=== PATIENT | female | born 2000 | race Caucasian/White ===

== ENCOUNTER 2023-04-29 08:00 | Outpatient (RCR) | payer OTHER, SELFPAY ==
--- NOTE | 2023-04-29 09:10 | BH.SGPN.GN ---
Behaviors/Verbalizations/Mental Status: [] Eye contact is good. Motor activity is appropriate. Appearance is casual. Speech is Appropriate. Mood is depressed. Affect is flat. Thoughts are linear and logical. No evidence of psychosis. Reviewed daily check in sheet and no reports of suicidal ideations or intent. Client Response/Progress/Benefit: [] Pt participated when prompted. Attentive. Daily symptom tracker notes 2/5 for depression and anxiety. Shared with the group that today is her first day in [facility]. Pt reports her goals for [facility] are to feel secure about myself. She did not elaborate on the events that lead to her hospitalization and placement in [facility]. Limited progress as this is her first day in [facility] level of care. Benefited from group support, encouragement, and feedback. Will continue in [facility] to maintain safety, prevent decompensation/re-admission, and to increase healthy coping. Narrative Note: []
--- NOTE | 2023-04-29 10:20 | BH.SGPN.GN ---
Behaviors/Verbalizations/Mental Status: []Pt alert and oriented, neatly dressed and groomed. Eye contact good. Motor activity appropriate. Speech within normal limits. Affect constricted, mood depressed. Thoughts linear, logical, no signs of hallucinations or delusions. Client Response/Progress/Benefit: []Pt participated in group discussions. Attentive during psychoeducation on stages of change. Participated during experiential activity. Interactive group discussion on why change is difficult in which group verbalized that change involves the unknown, is scary, leads to uncertainly, makes one feel vulnerable, leads to fear of failure, and triggers the pressure of success. Pt feels that change can be good and help others, but pt associates change with anger and frustration. Pt benefitted from increased awareness of stages of changes and how emotions impact change. Will continue PHP tx to prevent decompensation, improve daily functioning, and maintain safety. ? Narrative Note: []
--- NOTE | 2023-04-29 10:39 | BH.COMM ---
Communication Note Communication with Client Communication Note: Met with pt today to complete initial paperwork. No significant changes since pre-admission screening. Completed [place] [facility] Screening and risk assessment. Denies active SI since discharging from inpatient psych. Pt reports having some fleeting SI that pt describes as intrusive and I don't want to do anything. Pt does not have a hx of self-harm. Reports family is the major protective factor. Future oriented and willing to seek crisis services if feeling unable to maintain safety at any time. Consulted with Dr. Vera with plan to admit to IOP with dx of F33.2
--- NOTE | 2023-04-29 10:39 | BH.MTP ---
Master Treatment Plan Patient Information Program Physician:: Dr. Lisandra Bañuelos Primary Therapist:: Irma CASTREJON Psychiatric Diagnoses Psychiatric Diagnoses:: Major depressive disorder, recurrent, severe without psychosis F 33.2; Generalized anxiety disorder; Strong cluster B traits Diagnosis Code(s):: F 33.2 Estimated LOS Estimated LOS (in weeks):: 1 Problem/Goal #1 Problem/Goal #1 Stated Goal:: Stabilize the suicidal crisis AEB reduction of suicide domain on the DSM-5 outcome and self-report reduction in SI and increase in hope. Description of Barriers: Pt's work environment is a significant trigger for SI and depression. Pt has rigid thought patterns that reinforce depressive symptoms, fear of rejection, and self-criticism. Functional Impact: Pt is a 22-year-old non-binary person with a history of depression and anxiety. Pt referred to [facility] tx following an psychiatric admission to [facility] due to a suicide attempt that was interrupted by excessive alcohol use. Pt presents with a depressed mood, passive SI, crying spells, hopelessness, negative thinking patterns, and guilt. Pt's symptoms are impacting their social, occupational, and daily functioning. Goal Relevant Strengths/Supports: Pt is intelligent, has supportive family, and pt has multiple hobbies and interests. Objectives Objective #1: Stated Objective: will work with therapist to develop a ?crisis plan? which includes emergency telephone numbers, 3-4 coping strategies for SI/overwhelming emotions, lists of supports, warning signs, positive aspects of life, and motivations. Interventions: Therapist will provide patient with safety plan worksheet and work with pt. to develop individualized plan Discharge Criteria: Complete safety plan and begin to implement internal and external coping skills. Target Date: 05/06/23 Review Date: 05/06/23 Status: open Objective #2: Stated Objective: Pt will learn and utilize 2-3 healthy coping strategies to manage depressive symptoms. Interventions: Therapist will utilize CBT techniques to assist pt with understanding the connection between thoughts, feelings and behaviors. Education will be provided on behavioral activation. Therapist will assist pt in learning internal coping strategies to manage depressive symptoms, along with helping pt identify triggers. Discharge Criteria: Pt will have achieved this goal when can verbalize and has practiced at least 2 healthy coping strategies that successfully manage depressive symptoms. Target Date: 05/06/23 Review Date: 05/06/23 Status: open
--- NOTE | 2023-04-29 10:39 | BH.PSA ---
Source of Information Presenting Problems/Circumstances Problems, Referral Source, Mental Status, Client: Pt is a 22-year-old non-binary person with a history of depression and anxiety. Pt referred to [facility] tx following an psychiatric admission to [facility] due to a suicide attempt that was interrupted by excessive alcohol use. Pt presents with a depressed mood, passive SI, crying spells, hopelessness, negative thinking patterns, and guilt. Pt's symptoms are impacting their social, occupational, and daily functioning. Psychiatric Presentation Psych Issues & Need for Admission Psychiatric Issues:: Major depressive disorder, recurrent, severe without psychosis F 33.2; Generalized anxiety disorder Past Psychiatric History MH Treatment Hx Treatment History: Pt has history of one psych admit as noted above and one suicide attempt as noted above. Once in 2020 the patient had a plan of crashing her car but did not do this and instead went to work. No other self-harm. Past psych meds include Zoloft, Lexapro and BuSpar. Took Zoloft for 5 years. Cause some stomach issues. Tried Lexapro last summer but had stomach side effects. BuSpar made her dizzy. First depressed in high school but states has always had thoughts of not wanting to live. First hospitalization:: 2022 Most recent hospitalization:: 2022 Medication Trials:: Yes ECT Therapy:: No Age of first mental health symptoms: See tx history Describe (age, circumstance, etc) any past hospitalizations: see tx history Current providers for mental health treatment (counselor, psychiatrist, supervisor case loading, etc.): Pt has an outpatient psychiatrist and therapist. Pt will return to seeing their outpatient therapist once out of [facility] tx. Development & Family of Origin Childhood Significant Childhood Events: Pt was born and raised in [place] and describes her childhood as good. They currently live in [place] with their father and states mom lives close by. For primary support pt has father, mother, twin sister and few close friends. Family Who currently lives in your home?: Pt currently lives with their mother, but usually lives with their father. Pt is staying with mother due to pt's suicide attempt taking place at their father's house. Describe family composition:: Pt's parents are and pt feels they have a good co-parenting relationship. Pt is close with both parents, but lives with their father. Pt has a twin sister and they are close. Pt also has a younger brother, but they are not as close. Pt has no children and has never been . Pt is not currently in a romantic relationship. Family History Family Hx of Psychiatric or AOD Problems: Lots of depression and alcoholism on the father side. Twin sister has depression and younger brother may have depression. Paternal great grandfather by suicide. Ethnicity Culture Do you identify yourself with any particular cultural, ethnic background, or community?: No Sexuality Sexual Orientation: Bisexual (pt also identifies as non-binary, but pt's father does not know this.) Spirituality Restorationist Do you currently identify with any organized amish?: None Beliefs Is there a particular form of support from this community you can use for your recovery?: No Mental Status Memory Recent Memory: Good Remote Memory: Good Concentration Concentration: Good Eye Contact Eye Contact: Fair Speech Speech: Soft Thought Process Thought Process: Logical, Ruminations and [place] Insight: Fair Judgment: Good Behavior: Anxious (playing with a fidget) Orientation Orientation: Time, Person, Place and Situation Appearance Appearance: Neat/clean Mood Mood: Anxious and Depressed Affect Affect: Constricted Suicide Assessment Suicidal Ideation Have you ever felt like hurting yourself?: Yes Please explain:: Pt had a recent suicide attempt that resulted in hospitalization. Pt reports drinking heavily at the time to lower their inhibitions. Were you using ETOH/drugs at the time?: Yes Suicidal Intentional Rating Scale (SIRS): Current suicidal thoughts/No plan/Contracts for safety Physician Notification Violent Behavior/Abuse History Homicidal Ideation Do you have any homicidal thoughts? If so, explain:: No Abuse Have you ever been abused?: No Please explain:: Pt denies any abuse in childhood or as an adult. Life Events Are there any other significant life events?: Hardships (triggers at work which worsened pt's depression and led to suicide attempt.) Safety Do you ever feel threatened in your home? If yes, describe:: No Adult Social History Age 17 to Present Describe your current support system:: Pt is close with their father, twin, and mother. Pt has several close friends and pt has co-workers they get along with. Substance Use Substance Substance Use Type: Alcohol ( No smoking or vaping. No alcohol use since admission and patient says they would only have 2 drinks every few weeks prior to psych admission. Denies any other drugs or rehab.) and Caffeine (rare use as it increases anxiety.) Leisure/Social Activities Interests What do you enjoy or might be interested in learning about?: Pt is very passionate about insects, animals, and nature. Pt also enjoys ronan, hiking, and journaling. 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 Pt states that pt enjoys the job sometimes but hates certain aspects of it like euthanize animals. Pt hopes to go to graduate school, but has not been accepting and has applied and has had two formal interviews but was not excepted for either position and feels this rejection contributed to her worsening depression and anxiety. Service Service Have you ever been in the ?: No Legal History Records Have you had any past legal charges?: No Do you have any current legal charges?: No Have you ever been incarcerated? If yes, describe:: No Court Orders Have you had any past court orders for psychiatric treatment?: No Do you have a present court order for psychiatric treatment?: No Problem Checklist Current Problem Areas Problem List: Nutritional/Eating pattern changes, Depressed mood/sad, Anxiety, Inattention, Impulsivity, Sleep problems, Pertinent health issues (At 11 years old pt was admitted and had a colonoscopy and a GI work-up. They had irritable bowel and GERD diagnosed since then.) and Additional psychosocial stressors Diagnoses Diagnoses Diagnosis #1:: Major Depressive Disorder, recurrent, severe, without psychosis Diagnosis #2:: ROBIN Interpretive Summary Interpretive Summary Interpretive Summary: Pt is a 22-year-old nonbinary single (biological female) who was referred to the [facility] partial hospitalization program after an inpatient stay at [facility] from April 17 to April 21, 2023. Pt was admitted after a suicide attempt on April 15, 2023. Pt states that they had been depressed but for unknown reason that day while they were preparing bird food they decided to have alcoholic drink and keep drinking and then wrote instructions for someone to take care of their pets. Pt then took their pocket knife out and tested their skin to see if pt could cut their femoral artery as a means of completing suicide. Pt may have taken trazodone and does not remember what happened or if Pt blacked out but pt?s father came in and found pt and called the EMS. The Pt states that there was vomit on the floor according to their father and a bottle of trazodone near pt. The Pt was taken to the hospital and was in the ICU for 2 days for possible trazodone overdose and was intubated on the way to the hospital. Pt then was admitted for 4 days at the psychiatric unit and then referred to [facility]. For primary support Pt has her parents and a best friend. Pt denies any history of self-harm. Pt currently lives with their father and they get along well. Pt is staying at their mother?s house for awhile while working on their mental health since the attempt happened at father?s house. Pt has no romantic partner. 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 Pt states that Pt enjoys the job sometimes but hates certain aspects of it like euthanize animals. The Pt has had passive thoughts of since the end of high school and has been thinking about multiple ways to complete suicide in the past few months. Pt has thought about crashing their car since 2020 off-and-on. Describes their mood as depressed but it is a little better now than it was when Pt went in the hospital. Pt stated that prior to the suicide attempt they had even stopped walking the dog which made them realize that their mood was very down. Occasional hopelessness and anhedonia. Does enjoy crocheting and bird watching. Appetite decreased and sleep has required trazodone as the Pt wakes up and cannot get back to sleep. Energy level is low overall. Rare caffeine use. Concentration is decreased and the Pt admits to guilt. The Pt has occasional now passive thoughts of . The Pt states that since her psych admission Pt has thoughts of different ways I could have tried to kill myself but Pt states that Pt does not intend to kill her self but is just intellectually thinking of the way Pt could have tried to do it. Pt denies homicidal ideation, hallucinations or delusions. Pt is a worrier by nature. No history of eating disorder, OCD, trauma or PTSD. Strong family history of anxiety and depression. No report of abuse during childhood or as an adult. Treatment Plan Recommendations Recommendations Guidelines Recommendations:: Pt will start the PHP program at [facility] as the structure, support, education, and group therapy will hopefully prevent worsening of Pt's symptoms that might require rehospitalization. Pt felt safe during the interview and if it anytime they do not feel safe they will let us know or go to the emergency department. Pt agrees to abstain from all alcohol and any drug use. Pt has an outpatient psychiatrist and therapist that pt will continue to see after pt finishes PHP/IOP.
--- NOTE | 2023-04-29 11:20 | BH.SGPN.GN ---
Behaviors/Verbalizations/Mental Status: []Pt alert and oriented, casually dressed and groomed. Eye contact good. Motor activity appropriate. Speech within normal limits. Affect congruent, mood anxious and depressed. Thoughts linear, logical, no signs of hallucinations or delusions. Client Response/Progress/Benefit: []Pt responded well to session, attentive. Did well to process activity and work with group to relate the strategies used to overcome barriers in the activity to managing change in own life. Pt identified wanting to work on improving their ability to accept their mental health struggles and need for help with managing mental health sx. Shared struggling with self-doubt regarding their ability to successfully make this change. Shared following through with this change will improve their mood, self love, and personal relationships. Pt identified they can use positive self-talk, having an open mind, and supports to aid in managing this change. Pt will continue PHP tx to improve mood stability, promote communication with supports, maintain safety, and prevent decompensation. Narrative Note: []
--- NOTE | 2023-04-29 13:59 | BH.MDN_ITS ---
Multi-Disciplinary Note Note 60-min Individual: Time Started:: 12:15 Date: 04/29/23 Purpose of session/treatment goals addressed:: To gather information on pt's current stressors, symptoms, triggers, and tx goals. Another goal was to build rapport and provide emotional support. Eye Contact:: Fair Motor Activity:: Appropriate Appearance:: Casual Speech:: Soft Mood:: Depressed Affect:: Congruent (tearful) Thoughts:: Linear, Logical and No evidence of hallucinations/delusions noted Staff Interventions:: thought challenging, CBT techniques, rapport building, strengths perspective, completed risk assessment / safety planning and goal setting Client Response:: Pt responded well to session, open to meeting with therapist. Pt reports their first day went well and it went by fast. Pt shared about some of their interests, supports, and previous mental health treatment. Pt is an animal lover and enjoys nature. Their biggest stressors right now, which led to recent suicide attempt, was the stress of work and not getting into graduate school for wildlife conservation. Pt currently works at [employer] and there pt witnesses euthanasian of animals and knows about different tests they do on animals which is disturbing to pt. Pt is off work right now and feels like if they go back they will need a different role. Pt responded well to emotional support from therapist. Pt receptive to working on goal setting for PHP and completing a safety plan. Pt shared their biggest goal is to address their emotions. Pt completed safety plan which included warning signs of: excessive isolation, not walking their dog, and listening to a lot of sad music. Pt's coping skills and supports which included: their parents, friend, drawing, crocheting, and going outside. Also identified ways pt's parents can help pt and what makes things worse. Risks/Concerns:: Pt reports having suicidal ideations with plans to cut self and pt was recently admitted to [facility] in [place]. No active SI since discharge and pt reports they had a good weekend, so no suicidal ideations for the past few days. Future oriented. No access to weapons or stockpiles of medications. Progress Toward Goals/Plan:: First day of PHP tx. Pt reported it went faster than I thought it would. Pt has been in individual counseling before, but no previous IOP tx. Pt currently endorses a depressed mood, crying spells, isolation, negative thoughts of self, lack of motivation, anhedonia, and fleeting, passive SI. Pt will continue PHP tx to prevent rehospitalization and gain healthy coping skills. Time Stopped:: 13:15
--- NOTE | 2023-04-30 09:01 | BH.SGPN.GN ---
Behaviors/Verbalizations/Mental Status: []Pt alert and oriented, casually dressed and groomed. Eye contact good. Motor activity appropriate. Speech within normal limits. Affect congruent and bright, mood euthymic. Thoughts linear, logical, no signs of hallucinations or delusions. Reviewed pt?s symptom tracker, suicidal ideation reported as a 1/5 which is within pt baseline, denies plan, or active intent as of 04/30/23. Client Response/Progress/Benefit: []Pt responded well to session, open to processing with group and engaged. Pt reports feeling wired this morning. Explained this is related to continuing to adjust to tx environment. Did well to identify current mental health wins as spending time with their sister and mother rather than isolating. Another win noted as making progress on the blanket pt is crocheting. Shared feeling proud of this accomplishment and glad they are getting back into activities they enjoy. Stressor identified as ongoing issues with sleep. Pt appeared to benefit from supportive feedback of the group, as well as reflecting on mental health wins. Pt will continue PHP tx to promote mood stability, improve self-compassion, and continue to prevent decompensation. Narrative Note: []
--- NOTE | 2023-04-30 10:10 | BH.SGPN.GN ---
Behaviors/Verbalizations/Mental Status: []Pt alert and oriented, casually dressed and groomed. Eye contact fair. Motor activity appropriate. Speech within normal limits. Affect constricted, mood dysthymic. Thoughts linear, logical, no signs of hallucinations or delusions. Client Response/Progress/Benefit: []Pt receptive of session, engaged throughout AEB taking notes and listening to discussion. Appeared to connect with group topic of cognitive distortions and the impact of thought patterns on mental health, coping behaviors, and relationships. Pt reports connecting with distortions of all or nothing thinking, mental filtering, and emotional reasoning. Pt appeared to benefit from gaining insight on distorted thinking patterns and how this impacts overall mental health. Will continue PHP tx to prevent decompensation, improve daily functioning, and increase use of healthy coping skills. Narrative Note: []
--- NOTE | 2023-04-30 14:35 | BH.MDN ---
Multi-Disciplinary Note Note 45-min Individual: Time Started:: 12:30 Date: 04/30/23 Purpose of session/treatment goals addressed:: To address current symptoms, begin working on intrusive thoughts, and provide emotional support. Eye Contact:: Good Motor Activity:: Appropriate Appearance:: Neat Speech:: Soft Mood:: Anxious, Irritable and Depressed Affect:: Constricted (and tearful) Thoughts:: Racing and No evidence of hallucinations/delusions noted Staff Interventions:: psychoeducation on: (intrusive thoughts ), CBT techniques, mindfulness skills, strengths perspective and other (read over types of intrusive thoughts) Client Response:: Pt responded well to session, open to meeting with therapist. Pt shared group is going okay so far and pt feels like there is some benefit. Pt stated they met with the PA student today and they were able to talk about their hospitalization without becoming tearful, but pt became tearful during session. Pt feels that their thoughts of suicide are more intrusive, but pt shared there are times when the SI is because pt is depressed. Pt is not actively suicidal today and they have been keeping themselves busy. Group today was on cognitive distortions and pt shared I think I know more about cognitive dissonance than distortions. Pt feels they have cognitive dissonance with their current job. This job has been a major trigger for depression, SI, and intrusive thinking. Pt shared they want to discuss intrusive thoughts today and was receptive to learning about the different types of intrusive thoughts. Pt reports belief they have self-harming, doubts about relationships, traumatic memories, and questioning reality types of intrusive thoughts. Pt tearful while talking about how to overcome these thoughts, knowing that it will be frustrating and difficult. Pt receptive to emotional support and gentle thought challenging by therapist. Pt asked to practice a grounding skills, but pt declined. Pt reports plans to go for a walk today to ease some of their frustration and tension. Risks/Concerns:: pt reports 1/5 for thoughts of suicide today and 0/5 for intent. Pt reports no active SI, plan, or intent as of 04/30/23. Pt is tearful while talking about suicide and recent hospitalization. Future oriented. Progress Toward Goals/Plan:: Second day of PHP tx and pt reports it is going okay so far. Pt is engaged in groups by taking notes and interacting with peers. Pt's symptoms are ongoing, no changes since admission. Pt currently endorsing crying spells, negative thinking patterns, intrusive self-harming thoughts, poor sleep, and a depressed mood with anhedonia. pt mentioned concerns about Trazodone, and was encouraged to bring this up with Dr. Bañuelos tomorrow. Pt will continue PHP tx to prevent rehospitalization, gain social support and healthy coping skills, and improve daily functioning.
--- NOTE | 2023-05-01 09:15 | BH.NA ---
Physical Data Vital Signs Pulse Rate: 90 Blood Pressure: 107/63 Height/Weight Height: 1.6 m Weight:: 55.792 kg Weight in Pounds: 123.0 lbs Current Medication Compliance Medication Compliance Do you take your medication as prescribed?: Yes Nutritional History Appetite Nutritional Instructions: Describe your appetite:: Fair Additional nutritional information:: Client states they have probably lost a couple of pounds recently unintentionally due to a decreased appetite. Functional Assessment Sleep Pattern Describe any problems with sleeping: Client states they do usually get a full nights sleep if they take Trazodone, but usually only 3-4 hours if they don't take Trazodone. Sensory/Communication Assess Vision Problems Do you have any vision problems?: Glasses Communication Problems Do you have difficulty understanding what people are saying?: No Learning Assessment Education What is your level of education?: Bachelor Degree Medical Problems/History Gastrointestinal Conditions Gastrointestinal: Constipation and Other (See comments) (IBS, GERD) Pain Assessment Do you have acute or chronic pain?: No Surgical History Surgical History Have you had any surgeries? If so, list type and date:: No Substance Abuse Substance Abuse Please describe substance abuse in the last 30 days:: Client states they usually only drinks alcohol socially, but states prior to their suicide attempt on 04/15/23, they had a lot of alcohol to drink. Client denies tobacco or substance use. Client reports occasional caffeine use. Mental Status Summary Mental Status Significant Findings/Observations on Appearance and Mood:: Client is alert and oriented x 4. Client is casually groomed with good hygiene. Client is cooperative with assessment. Client makes good eye contact. Client's voice has normal rate and volume. Client has appropriate affect. Client makes logical associations. Client has normal processing. Client denies delusions/hallucinations. Client states they do have some intrusive thoughts about suicide, but denies intent and states their family is their protective factor. Suicide Assessment Suicidal Ideation Are you currently or have you been suicidal in the past?: Yes Suicidal Intentional Rating Scale (SIRS): Current suicidal thoughts/No plan/Contracts for safety Physician Notification Past Psychiatric History MH Treatment Hx Past Psychiatric Medications:: Zoloft (at age 17), Lexapro (a short time, stopped due to stomach issues), Buspar (only a few days, caused dizziness) Age of first mental health symptoms: Client states she has had depression symptoms since middle school, and states she first started medication for mental health at age 17. Describe (age, circumstance, etc) any past hospitalizations: [facility] 04/17-04/21/23 after a medical hospitalization for a suicide attempt Current providers for mental health treatment (counselor, psychiatrist, mattress spring encaser, etc.): [facility] Fall Risk Assessment Age Age: Less than 60 Mental Status Mental Status: Willing & able to ask for assistance when needed Physical Status Physical Status: No problems Impairments Impairments: None Elimination Elimination: Continent AND independent Gait or Balance Gait or Balance: Walks independently Hx of Falls History of falls in the past 6 months: No known history Medications/Substances Psychotropics:: Antidepressants Medications/substances used within the past 24 hours or ordered to administer: 1-2 of the medications/substances listed above Total Score Total Points:: 1 RN Summary of Impressions Impressions Recommendations Impressions: Psychiatric Issues: 1. Major depressive disorder, recurrent, severe without psychosis 2. Generalized anxiety disorder 3. Strong cluster B traits Level of Care How do the client's current symptoms and functional deficits support need for this level of care?: Client was referred to IOP/PHP after a recent hospitalization at [facility] after suicidal ideations and a suicide attempt. 04/15/23 client states they had been drinking alcohol and started writing down their passwords for things and how to care for their animals as they got more suicidal ideas. Client started writing a suicide note. Client began to cut their leg to see how much alcohol they would need to drink to not feel pain so they could cut their femoral artery as a suicide attempt. Client states they passed out and their dad found them and called 911 and they have no memory of being in the ER until they woke up in the ICU. Client states for months they had been thinking about what supplies they could take from work to help them with a suicide attempt. Client states now they still have intrusive thoughts about suicide, but states their family is a strong protective factor. PHP/IOP will promote gains and prevent further decompensation while providing social support and skills training.
[2023-05-01 09:41] VITALS: BP 107/63; PULSE 90
--- NOTE | 2023-05-01 10:10 | BH.SGPN.GN ---
Behaviors/Verbalizations/Mental Status: [] Client alert and oriented, casually dressed and groomed. Eye contact fair. Motor activity appropriate. Speech within normal limits. Affect congruent, mood anxious. Thoughts linear, logical, no signs of hallucinations or delusions. Client Response/Progress/Benefit: []Client was an active participant in activity and taking notes during group discussion. Attentive during psychoeducation on coping skills, why people use unhealthy coping skills, and how to replace unhealthy coping skills. Group came up with list of negative coping skills that included substance use, avoidance, lashing out, and escaping from reality. Group discussed the effects of how negative coping skills can impact mental health in a negative way. Benefited from increased understanding of unhealthy coping skills and the need for developing healthy interna and external coping skills. client will continue PHP tx to improve mood stability, decrease anxiety, and improve daily functioning.
--- NOTE | 2023-05-01 13:16 | BH.PSY.EVA_ITS ---
Psychiatric Evaluation Initial Evaluation Initial Evaluation: History of Present Illness: [] The patient is a 22-year-old nonbinary single (biological female) who was referred to the [facility] partial hospitalization program after an inpatient stay at [facility] in [place] from April 17 to April 21, 2023. The patient was admitted after a suicide attempt on April 15, 2023. The patient states that they had been depressed but for unknown reason that day while they were preparing bird food they decided to have alcoholic drink and keep drinking and then wrote instructions for someone to take care of her pets. The patient then took her pocket knife out and tested her skin to see if she could cut her femoral artery as a means of completing suicide. Patient may have taken trazodone and does not remember what happened or if she blacked out but her father came in and found her and called the EMS. The patient states that there was vomit on the floor according to her father and a bottle of trazodone near her. The patient was taken to the hospital and was in the ICU for 2 days for possible trazodone overdose and was intubated on the way to the hospital. She then was admitted for 4 days at the psychiatric unit and then referred here. For primary support she has her parents and 1 friend. She denies any history of self-harm. She currently lives with her father and they get along well. She has no romantic partner. 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 She states that she enjoys the job sometimes but hates certain aspects of it like euthanize animals. The patient has had passive thoughts of since the end of high school and has been thinking about multiple ways to complete suicide in the past few months. She has thought about crashing her car since 2020 off-and-on. Describes her mood is depressed but it is a little better now than it was when she went in the hospital. The patient stated that prior to the suicide attempt they had even stopped walking the dog which made them realize that their mood was very down. Occasional hopelessness and anhedonia. Does enjoy crocheting and bird watching. Appetite decreased and sleep has required trazodone as the patient wakes up an d cannot get back to sleep. Energy level is low overall. Rare caffeine use. Concentration is decreased and the patient admits to guilt. The patient has occasional now passive thoughts of . The patient states that since her psych admission she has thoughts of different ways I could have tried to kill myself but she states that she does not intend to kill her self but is just intellectually thinking of the way she could have tried to do it. Patient denies homicidal ideation, hallucinations or delusions. She is a worrier by nature. No history of eating disorder, OCD, trauma or PTSD. Current Psychiatric Medications: [] Wellbutrin XL 300 mg p.o. every morning (4 months at this dose and on it for 1 year); Cymbalta 90 mg p.o. daily (on it for 3 years, dose increased from 60-91 admitted in April 2023. Past Psychiatric History: [] 1 psych admit as noted above. 1 suicide attempt as noted above. Once in 2020 the patient had a plan of crashing her car but did not do this and instead went to work. No other self-harm. Past psych meds include Zoloft, Lexapro and BuSpar. Took Zoloft for 5 years. Cause some stomach issues. Tried Lexapro last summer but had stomach side effects. BuSpar made her dizzy. First depressed in high school but states has always had thoughts of not wanting to live. Substance Use History: [] No smoking or vaping. No alcohol use since admission and patient says she would only have 2 drinks every few weeks prior to her admission. Denies any other drugs or rehab. Allergies: [] Cats, grasses and other but no medication allergies known. Maalox, milk of magnesia, Zyrtec as needed. Psych meds as dictated above Medications: [] See above Past Medical History: [] At 11 years old the patient was admitted and had a colonoscopy and a GI work-up. They had irritable bowel and GERD diagnosed since then. [place] teeth but no other surgeries. Regular menstrual periods and has a vaginal ring for control. 0 para 0 and sexually active. Family Psychiatric History: [] Lots of depression and alcoholism on the father side. Twin sister has depression and younger brother may have depression. Paternal great grandfather committed suicide. Personal/Social History: [] The patient was born and raised in [place] [facility] and describes her childhood as good. They currently live in [place] with her father and states mom lives close by. For primary support the patient has father, mother, twin sister and a friend. Patient is single and has no children and identifies as bisexual. Patient has not discussed the fact that she is nonbinary with her father. The patient and has pet birds a gecko and a dog. 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 She is been there for 8 months and likes part of the job but does not like the necropsy's and finds it emotionally taxing. She is currently on leave from work and plans to return to the job but not be in the lab. She she has a high school diploma and a bachelor's degree in animal science from the [employer]. Patient wants to go to graduate school for conservation science. The patient has tried to get another graduate position and has applied and has had 2 formal interviews but was not excepted for either position and feels this rejection contributed to her worsening depression and anxiety. Legal History: [] Has light truck driver's license. No arrests. No DUIs. Review of Systems: [] Review of systems includes headaches, GI side effects, joint pain, muscle stiffness on occasion. Otherwise negative except as noted in present illness otherwise. Vital Signs: [] Vital signs and exam reviewed in records and in nurses notes and updated and the patient is deemed medically able to participate in the IOP program. Mental Status Examination: [] Patient is a 22-year-old biological female who appears female and appears normal for stated age. She wears glasses and has short dark hair and is casually dressed and groomed with good hygiene. She is ambulatory with a normal gait. She is cooperative during the interview and eye contact is good. She has no psychomotor agitation or retardation. Speech is normal rate and rhythm and fluent with no pressure. Mood is depressed. Affect is full and normal. Thought process: Goal-directed and organized. Thought content: There is evidence of passive thoughts of and suicidal ideation. There is no evidence of active suicidal ideation, homicidal ideation, hallucinations or delusions. Reality testing is intact. Intelligence is above average. Judgment is intact. Impulsivity is high. Insight is limited. Diagnoses: [] 1. Major depressive disorder, recurrent, severe without psychosis 2. Generalized anxiety disorder 3. Strong cluster B traits 4. School, work and primary support issues Plan: [] The patient will start the PHP program at [facility] as the structure, support, education, and group therapy will hopefully prevent worsening of the patient's symptoms that might require rehospitalization. The patient felt safe during the interview and if it anytime they do not feel safe they will let us know or go to the emergency department. No medication changes were made today as the medications were changed recently when she was in the hospital. The patient will continue to follow-up with her outpatient provider and I will see the patient in follow-up in 1 week. The patient agrees to abstain from all alcohol and any drug use.
--- NOTE | 2023-05-01 13:30 | BH.DR.ITP ---
Initial Treatment Plan Patient Information Visit Information: ADMISSION DATE: EXPECTED LOS: 4-6 weeks Problems/Symptoms Problem #1:: Depression Symptom:: Sadness, anhedonia, biological disruption of appetite, biological disruption of sleep, decreased concentration, guilt, passive thoughts of , suicidal ideation Problem #2:: Anxiety Symptom:: Worry, rumination
--- NOTE | 2023-05-01 15:59 | BH.MDN ---
Multi-Disciplinary Note Note 45-min Individual: Time Started:: 11:15 Date: 05/01/23 Purpose of session/treatment goals addressed:: Used the session to review current symptoms and progress in [facility]. Provided psychoeducation on the Myths and Facts of Thoughts Eye Contact:: Good Motor Activity:: Appropriate Appearance:: Casual Speech:: Appropriate Mood:: Anxious Affect:: Congruent (smiles for most of the session. ) Thoughts:: Linear, Logical and No evidence of hallucinations/delusions noted Staff Interventions:: psychoeducation on: (intrusive thoughts) and rapport building Client Response:: Pt states that today is going pretty good. Met with program psychiatrist and no medication changes were made. She reviewed what she has been working on with program therapist (primary therapist was unable to meet with patient due to clinical issues with another client). Pt in the early stages of learning about intrusive thoughts, worried voice, false comfort, and montes mind. Used this session to introduce and discuss myths about thoughts such as 'out thoughts are under our control, our thoughts indicate our character thinking something makes it likely to happen, etc. Pt did well identifying why these are myths and not facts. Risks/Concerns:: pt reports 1/5 for thoughts of suicide today and 0/5 for intent. Pt reports no active SI, plan, or intent as of 05/01/23. This has been baseline since entering [facility]. Denies any significant stressors or acute changes since yesterday. Future-oriented. Protective factors are her family and pets I'm doing this for them more than myself. Does not present as imminent danger to herself. Progress Toward Goals/Plan:: Third day of [facility]. Pt is engaged in groups by taking notes and interacting with peers. Pt's symptoms are ongoing, no changes since admission. Pt currently endorsing crying spells, negative thinking patterns, intrusive self-harming thoughts, poor sleep, and a depressed mood with anhedonia. Great deal of her self-worth is based on achievements, school, and career. Due to the fact that he currently does not like her job and has not yet been accepted to a graduate school she is struggling with uncertainty and lack of purpose leading to depression/negative thoughts, passive thoughts of , and feelings of hopelessness. Time Stopped:: 12:00
--- NOTE | 2023-05-02 09:05 | BH.SGPN.GN ---
Behaviors/Verbalizations/Mental Status: []Pt alert and oriented, casually dressed and groomed. Eye contact good. Motor activity appropriate. Speech within normal limits. Affect congruent, mood anxious and content. Thoughts linear, logical, no signs of hallucinations or delusions. Reviewed pt?s symptom tracker, suicidal ideation reported as 1.5/5 which is within pt baseline, denies plan, or active intent as of 05/02/23. Client Response/Progress/Benefit: []Pt responded well to session, open to processing with group and engaged. Pt reports feeling wired this morning. Shared this is related to the nervous excitement they feel about being in the group setting. Did well to identify current wins which included going furniture shopping with her father as well as using several of the coping skills reviewed in coping skills group the previous date. Described reaching out to a support to help boost pt's mood when feeling more down the previous day. Current stressor noted as ongoing difficulties with experiencing nightmares. Receptive of group supportive feedback on calming skills to better manage the emotional distress nightmares can bring. Pt appeared to benefit from supportive feedback of the group, as well as reflecting on mental health wins. Pt will continue PHP tx to promote mood stability, improve self-compassion, and continue to prevent decompensation. Narrative Note: []
--- NOTE | 2023-05-02 10:10 | BH.SGPN.GN ---
Behaviors/Verbalizations/Mental Status: []Eye contact is good. Motor activity is appropriate. Appearance is casual. Speech is Appropriate. Mood is depressed. Affect is congruent. Thoughts are linear and logical. No evidence of psychosis. Client Response/Progress/Benefit: []Pt was an active participant in group discussion. Attentive during psychoeducation on SMART goals. Participated in experiential activity. Engaged during interactive discussion on the benefits of setting goals which group identified as; increase self-worth, increase confidence, can motivate us, can lead to personal growth, and can give one a sense of purpose. Participated during interactive discussion on possible obstacles to obtaining goals and pt self-identified barriers as wanting to avoid potential disappointment and stress pressure. Benefited from increased understanding of benefits of goals, obstacles to obtaining goals, and methods for setting appropriate goals (SMART goals). Will continue in PHP tx to reduce SI, improve daily functioning, and increase healthy coping skills. Narrative Note: []
--- NOTE | 2023-05-02 11:10 | BH.SGPN.GN ---
Behaviors/Verbalizations/Mental Status: []Pt alert and oriented, casually dressed, appropriately groomed. Eye contact good. Motor activity appropriate. Speech within normal limits. Affect congruent, mood euthymic. Thoughts linear, logical, no signs of hallucinations or delusions. Client Response/Progress/Benefit: []Pt was engaged during discussion and willing to complete the worksheet challenging them to develop a personal SMART goal. Pt chose the goal of reading 10 pages of novel with minimal distractions. Pt stated this will benefit them by working toward mindfulness and slow/calm thinking to decrease anxiety. Pt identified barriers which included noise, uncomfortable, tired, and bored. Identified for noise they can wear headphones or go outside. Pt receptive to identifying solutions for these barriers and willing to begin working on this goal. Benefited from this group by developing a short-term SMART goal related to mental health. Will continue PHP to improve daily functioning, increase consistent use of skills, and prevent decompensation.
--- NOTE | 2023-05-02 11:15 | BH.SGPN.GN ---
Behaviors/Verbalizations/Mental Status: [] Client alert and oriented, neatly dressed and groomed. Eye contact good. Motor activity appropriate. Speech within normal limits. Affect congruent, mood anxious and euthymic. Thoughts linear, logical, no signs of hallucinations or delusions. Client Response/Progress/Benefit: [] Client responded well to session AEB taking notes and providing input and examples throughout. Group discussed the different categories of coping skills which included distraction, emotional release, grounding, self-love, and thought challenging. Client created a coping skill menu identifying various skills to try in each category. Client?s coping skill menu included: reaching out to a support, exercise/walking, paced breathing, positive self-talk, and montes mind. Appeared to benefit from increasing repertoire of healthy coping skills. Client will continue PHP tx to continue to improve daily functioning, reduce thought patterns that lead to anxiety and depression, as well as prevent decompensation. Narrative Note: []
--- NOTE | 2023-05-02 14:56 | BH.MDN ---
Multi-Disciplinary Note Note 60-min Individual: Time Started:: 12:05 Date: 05/02/23 Purpose of session/treatment goals addressed:: To work on goal #1 objective #2 of pt's treatment plan. Eye Contact:: Good Motor Activity:: Appropriate Appearance:: Casual Speech:: Appropriate Mood:: Depressed Affect:: Congruent Thoughts:: Linear, Logical and No evidence of hallucinations/delusions noted Staff Interventions:: thought challenging, CBT techniques, strengths perspective, goal setting and other (completed the mistaken belief questionnaire.) Client Response:: Pt responded well to session, open to meeting with therapist. Pt shared they are hoping to get their journal back from the police this week. Pt's journal has the suicide note pt wrote in it and pt feels like it is important for pt to read this again. Pt shared when they get it back they will make sure to talk with support after. Pt is consistent with journaling, so pt is also looking forward to being able to write in it again. Discussed maybe creating a collage in their journal to separate where pt was and where pt wants to be. Pt receptive to learning about mistaken beliefs and completed the mistaken beliefs questionnaire. Pt shared they were not shocked to find out that their worth is heavily tied to how perfect they are and their accomplishments. Pt connected this to why not getting into the grad school they wanted was such a significant trigger. Pt shared they are very hard on themselves which makes it challenging to give themselves credit. Pt receptive to working on some self-reflection questions for homework. Pt will also continue to work on opposite action and talking with family. Risks/Concerns:: Pt reports ongoing thoughts and passive SI, but pt denies any active SI, plan, or intent. Future oriented and monitored frequently by parents. Progress Toward Goals/Plan:: Pt progress is mild, but pt continues to attend [facility] tx consistently. Pt reports they are forming connections with some people at [facility] and they are seeing some benefits from group. Pt's symptoms are ongoing and pt continues to report a depressed mood, crying spells, rumination, thoughts of and passive SI, and negative thoughts of self. Pt is trying to use healthy coping skills outside of IOP tx. Pt will continue [facility] level of care to prevent decompensation, increase use of healthy coping skills, and maintain safety. Time Stopped:: 12:58
--- NOTE | 2023-05-03 09:00 | BH.SGPN.GN ---
Behaviors/Verbalizations/Mental Status: [] Eye contact is good. Motor activity is appropriate. Appearance is casual. Speech is Appropriate. Mood is depressed. Affect is congruent. Thoughts are linear and logical. No evidence of psychosis. Reviewed daily check in sheet and no reports of suicidal ideations or intent. Client Response/Progress/Benefit: [] Pt was an active participant in group discussion. Attentive. Daily symptom tracker notes 2/5 for depression and /5 for anxiety. Overall reports mood as being better than yesterday. Shared that a nightmare yesterday increased her depressive symptoms however things ended well. Shared that after group she completed self-care, distraction, completed tasks, and completed goals. With the help of the group had insight that she utiized skills to regulate her mood and thoughts. Progress noted per pt report; able to utilize skills to decrease intensity of emotions and thoughts. Benefited from group support, encouragement, and feedabck. Will continue in [facility] to maintain safety, prevent decompensatin/re-admission to psych, and to increase overall functioning. Narrative Note: []
--- NOTE | 2023-05-03 10:10 | BH.SGPN.GN ---
Behaviors/Verbalizations/Mental Status: [] Eye contact is good. Motor activity is appropriate. Appearance is casual. Speech is Appropriate. Mood is euthymic. Affect is congruent. Thoughts are linear and logical. No evidence of psychosis. Client Response/Progress/Benefit: []Pt engaged participant AEB listening to others, engaging in activity, and providing feedback at times. Attentive during psychoeducation and provided insight into obstacles in the way of mental wellness. Pt shared with group current mental health reality and desired mental health reality. Stated trying to get back to hobbies as one step they currently making to get closer to desired reality. Identified barriers to desired reality include: bring work home, guilt/grief, unable to accept failure, stressing about invisible deadlines, and constant doubt. Benefited from taking look at current mental health state and obstacles for progress. Pt will continue PHP level of care to improve daily functioning, increase healthy coping, and prevent decompensation.
--- NOTE | 2023-05-03 11:10 | BH.SGPN.GN ---
Behaviors/Verbalizations/Mental Status: []Eye contact is good. Motor activity is appropriate. Appearance is casual. Speech is Appropriate. Mood is euthymic. Affect is congruent. Thoughts are linear and logical. No evidence of psychosis. Client Response/Progress/Benefit: []Pt was an active participant in group discussions and experiential activity. Attentive during psychoeducation. Pt participated during interactive discussion on strategies to overcome several obstacles to mental wellness including taking work home, guilt/grief, unable to accept failure, stress about invisible deadlines, and constant doubts. Pt choose the barrier of stress from invisible deadlines to work on this week and identified strategies to incorporate including challenging perspective on what is realistic. Benefited from increased awareness of obstacles to mental wellness and strategies to help overcome those obstacles. Will continue in [facility] tx to promote gains, further decrease depressive symptoms, and improve daily functioning. Narrative Note: []
--- NOTE | 2023-05-03 13:38 | BH.MDN ---
Multi-Disciplinary Note Note 60-min Individual: Time Started:: 12:10 Date: 05/03/23 Purpose of session/treatment goals addressed:: To work on pt's anxious thought patterns and perfectionistic expectations for self. Eye Contact:: Good Motor Activity:: Appropriate Appearance:: Neat Speech:: Appropriate Mood:: Anxious and Depressed Affect:: Congruent Thoughts:: Linear, Logical and No evidence of hallucinations/delusions noted Staff Interventions:: thought challenging, psychoeducation on: (exposure therapy), CBT techniques, mindfulness skills, strengths perspective and goal setting Client Response:: Pt responded well to session, open to meeting with therapist. Pt stated they thought about the mistaken belief questionnaire and pt realizes that they have a lot of unrealistic expectations for themselves. Pt shared this leads to pt being all or nothing and ultimately avoiding things. Pt shared right now they will not journal because pt does not have their journal. Pt also is avoiding looking for a different job and applying for schools. Pt stated avoidance in the short-term protects pt from feeling disappointment which pt is terrified to feel. Pt struggles with allowing themselves to feel their feelings without judgement. Pt gets anxious when they get sad because they have associated sadness with suicide. Pt also gets frustrated with themselves when they are sad because it feels like I don't have time for that. Discussed acceptance skills and how to work on overcoming mistaken beliefs by changing behaviors. Pt receptive to the idea of working exposure goals that focus on no being perfect. Pt also willing to learn more about emotions and how to become less judgmental of their emotions. Pt agreeable to plan for next week to do three more PHP days and then transition to IOP. Risks/Concerns:: Pt denies any active SI, plan, or intent as of 05/03/23. Pt continues to have thoughts of , but denies any thoughts of killing self. Future oriented and motivated. Progress Toward Goals/Plan:: Pt is making progress towards their tx goals AEB pt's consistent attendance and follow through with homework. Pt continues to endorse a depressed mood, daily thoughts of , negative thoughts of self, anxiety, and fear of their feelings. Pt is learning skills in group and individual sessions and pt is receptive to working on thought challenging and sitting with the uncomfortable. Pt will continue PHP for three more days next week and then transition to IOP level of care. Pt can benefit from PHP to prevent decompensation, further reduce SI, and improve daily functioning. Time Stopped:: 13:03
--- NOTE | 2023-05-06 09:05 | BH.SGPN.GN ---
Behaviors/Verbalizations/Mental Status: [] Eye contact is good. Motor activity is appropriate. Appearance is casual. Speech is Appropriate. Mood is depressed. Affect is congruent. Thoughts are linear and logical. No evidence of psychosis. Reviewed daily check in sheet and pt reports 2/5 for suicidal thoughts and 0/5 for intent. Scheduled to meet with individual therapist today. Client Response/Progress/Benefit: [] Pt participated at times during the group discussions. Attentive. Daily symptom tracker notes 3/5 for depression and 2/5 for anxiety.Very brief and superficial check-in with little elaboration. Reported a couple mental health wins over the weekend. Discussed that the picked up her journal from the police department over the weekend. She was very anxious about picking up this journal stating it had very important stuff inside. After picking up the journal she began to cry as she was reading it. (did not elaborate in group, however later learned that this was the journal she wrote her suicide note). Emotion for today is indifferent. Limited progress noted due to brevity of check-in. Benefited from group support, encouragement, and feedback. Will continue in IOP to maintain safety, stabilize mood, and prevent decompensation/re-amdission. Narrative Note: []
--- NOTE | 2023-05-06 10:10 | BH.SGPN.GN ---
Behaviors/Verbalizations/Mental Status: []Client alert and oriented, casually dressed and groomed. Eye contact fair. Motor activity appropriate. Speech within normal limits. Affect constricted, mood euthymic. Thoughts linear, logical, no signs of hallucinations or delusions. Client Response/Progress/Benefit: []Client was an semi-engaged participant in group discussions and activity. Attentive during psychoeducation. Client engaged in activity in which group was able to make connections about how can be easier to find positives in others compared to self. Engaged in interactive discussion on the definition of perspective, how perspective is formed, and why perspective is important in treatment. Client shared their perspective towards treatment today is neutral which they noted has been wavering. Stated stressors and work are contributing to neutral perspective. Will continue in PHP to increase consistent use of healthy coping, challenge distortions, and prevent decompensation.
--- NOTE | 2023-05-06 11:15 | BH.SGPN.GN ---
Behaviors/Verbalizations/Mental Status: []Pt alert and oriented, neatly dressed and groomed. Eye contact good. Motor activity appropriate. Speech within normal limits. Affect constricted, mood depressed. Thoughts linear, logical, no signs of hallucinations or delusions. Client Response/Progress/Benefit: []Pt was attentive and contributed to small group discussion. Pt completed strengths exploration worksheet, identifying love of learning as the strength pt feels can help pt most in their mental health recovery. Pt stated they can use love of learning to identify their triggers and gain new coping skills. Pt worked with group to identify strategies that can help increase utilization of personal strengths and how to challenge one?s perspective in general. Pt identified wanting to work on showing an interest in themselves by taking time for their hobbies to help challenge perspective. Benefited from identifying personal strengths and strategies for enhancing use of identified strengths. Pt to continue PHP tx for one more day and then pt will drop down to IOP level of care to promote mood stability. Narrative Note: []
--- NOTE | 2023-05-06 14:09 | BH.MDN_ITS ---
Multi-Disciplinary Note Note 45-min Individual: Time Started:: 12:10 Date: 05/06/23 Purpose of session/treatment goals addressed:: To review homework from last session and to work on cognitive restructuring techniques. Eye Contact:: Good Motor Activity:: Appropriate Appearance:: Neat Speech:: Soft Mood:: Depressed Affect:: Congruent (tearful at times) Thoughts:: Linear, Logical and No evidence of hallucinations/delusions noted Staff Interventions:: thought challenging, CBT techniques, mindfulness skills, strengths perspective, goal setting and taught coping skills (taught self-compassion) Client Response:: Pt responded well to session, open to meeting with therapist. Pt reports the weekend went pretty well, pt was able to stay at their dad's house by themselves which is something that they have not done since their suicide attempt. Pt also got their journal from the police station and pt shared I'm glad I got it because if I didn't I would always wonder. Pt shared they cried reading it, but felt like it was helpful to see what pt wrote the night they attempted suicide. Pt became tearful and shared it was hard to read some of it because pt did not realize how sad they were. This led to a conversation of how difficult it is for pt to accept that they are sad. Pt shared they feel there is nothing to be sad about or there needs to be a reason to be sad. Pt stated when they get sad then either try to avoid the feeling all together or get angry with themselves. Pt sees that this results in pt feeling extremely sad or not allowing self to acknowledge their mood. Pt shared when they allow themselves to feel sad they think of all the things that they have not done and tell themselves that I have too much to do to be sad. Discussed acceptance and how learning to accept that pt feels this way can help pt prevent unnecessary suffering. Pt receptive to challenging this and willing to learn about self- compassion. Discussed the components of self-compassion including self-kindness, common human experience, and mindfulness. Practice reframing a situation using self-compassion and pt willing to practice this technique on their own life for homework. Risks/Concerns:: Pt reports having intrusive suicidal thoughts this weekend, but denies any active SI, plan, or intent. Pt is future oriented and plans to go kayaking later today. Progress Toward Goals/Plan:: Pt continues to make progress towards tx goals AEB pt's self-report of utilizing coping skills outside of IOP tx. Pt is active in group and consistent with homework. Pt's symptoms are still present, but resolving. Pt still has some SI, but denies any active SI, plan, or intent since discharging from the hospital. Pt reports ongoing crying spells, negative thinking, a depressed mood, and rumination. Pt feels like they are progressing well enough to move down to IOP on 05/08/23. Pt will continue PHP tx for one more day and then transition to IOP level of care to further reduce symptoms and improve daily functioning. Time Stopped:: 13:00
--- NOTE | 2023-05-07 09:05 | BH.SGPN.GN ---
Behaviors/Verbalizations/Mental Status: [] Eye contact is good. Motor activity is appropriate. Appearance is casual. Speech is Appropriate. Mood is depressed. Affect is congruent. Thoughts are linear and logical. No evidence of psychosis. Reviewed daily check in sheet and no reports of suicidal ideations or intent. Client Response/Progress/Benefit: [] Pt participated at times during the group discussion. Attentive. Daily symptom tracker notes 5 for depression and /5 for anxiety. Mental health wins include kayaking yesterday. Reports that she didn't really want to go however utilized opposite action and admitted that being on the water and in nature was very beneficial to her mental health. Insight and awareness of the impact that this one healthy decision had on her day. Emotion for today is happy. Continues to struggle with intrusive negative thoughts however according pt progress noted. Benefited from group support, encouragement, and feedback. Will continue in PHP to prevent decompensation/re-admission to psych unit, maintain safety, and to improve functioning to return to work. Narrative Note: []
--- NOTE | 2023-05-07 10:10 | BH.SGPN.GN ---
Behaviors/Verbalizations/Mental Status: []Eye contact is good. Motor activity is appropriate. Appearance is casual. Speech is Appropriate. Mood is anxious and dysthymic. Affect is congruent. Thoughts are linear and logical. No evidence of psychosis. Client Response/Progress/Benefit: []Pt was an active participant in group discussions. Engaged and provided feedback with group on defining anxiety. Along with peers, pt worked to identify the benefits of anxiety. Participated during interactive discussion on how anxiety impacts one physically, cognitively, and behaviorally. Completed worksheet on how anxiety impacts pt physically, cognitively, and behaviorally. Pt shared physically pt experiences increased body temp, nausea, and insomnia. Benefited from increased insight into anxiety's benefits and how diagnosable anxiety impacts functioning. Will continue in IOP tx to promote self-care and thought challenging, and further increase mood stability. Narrative Note: []
--- NOTE | 2023-05-07 11:10 | BH.SGPN.GN ---
Behaviors/Verbalizations/Mental Status: []Pt casually dressed and groomed. Eye contact fair. Motor activity appropriate. Speech within normal limits. Affect flat, mood dysthymic. Thoughts linear, logical, no signs of hallucinations or delusions. Client Response/Progress/Benefit: []Pt was a passive participant in full group discussion, however did take notes, attentive to others, and showed increased engagement in small group discussion. Pt identified anxiety safety behaviors for self to include: procrastination, not making phone calls, sleeping, use of constant distraction, and isolation. Attentive during psychoeducation on mindfulness and ways to utilize mindfulness techniques to improve anxiety management. The group receptive to learning about belly breathing and grounding tools. Engaged and attentive during group brainstorm of healthy anxiety reduction skills including thought challenging and behavioral changes. Appeared to benefit from practicing in the moment coping skills and increasing repertoire of anxiety management skills. Pt stated breathing and drawing as skills would like to practice over the next week. Pt will discharge from [facility] today and admit to [facility] tomorrow to help maintain gains, continue to build healthy coping skills, and challenge distortions.
--- NOTE | 2023-05-07 14:03 | BH.DS_ITS ---
Discharge Summary Demographics Date of Admission:: 04/29/23 Discharge Date: 05/07/23 Presenting Problems at Admission:: Pt is a 22-year-old non-binary person with a history of depression and anxiety. Pt referred to [facility] tx following an psychiatric admission to [facility] due to a suicide attempt that was interrupted by excessive alcohol use. Pt presents with a depressed mood, passive SI, crying spells, hopelessness, negative thinking patterns, and guilt. Pt's symptoms are impacting their social, occupational, and daily functioning. Discharge Diagnoses:: Major depressive disorder, recurrent, severe without psychosis F 33.2; Generalized anxiety disorder; Strong cluster B traits Reason for Discharge:: Pt has successfully competed PHP tx AEB pt's reduced intensity of SI, prevention of rehospitalization, and self-report of readiness to step down to IOP. Pt will step down to [facility] level of care. Treatment Progress During Treatment & Response: Pt responded well to tx AEB her consistent attendance and engagement in group and individual sessions. Pt demonstrated progress in reducing SI and preventing rehospitalization. Pt will continue to work on increasing emotional regulation skills and self-compassion to improve her daily functioning. Issues Still to be Addressed:: Depressive symptoms, perfectionism, constant need for distraction, anxiety about work, and passive SI. Discharge Recommendations/Instructions:: Pt will begin IOP tx tomorrow, 05/08/23. Discharge Handout
== END 2023-05-07 12:29 | disposition home or self-care (01) ==
LOC: BHPHP 08:00
PROVIDERS: Referring Provider Psychiatry & Neurology Psychiatry; Visit Provider Psychiatry & Neurology Psychiatry
DX: F33.2 Major depressive disorder, recurrent severe without psychotic features (principal); F41.1 Generalized anxiety disorder; Z79.899 Other long term (current) drug therapy
CPT/HCPCS: H0035; 90834; 90837; G0410

== ENCOUNTER 2023-05-08 08:04 | Outpatient (RCR) | payer OTHER, SELFPAY ==
--- NOTE | 2023-05-08 09:00 | BH.SGPN.GN ---
Behaviors/Verbalizations/Mental Status: []Pt eye contact good, neat and casually dressed, motor activity appropriate, speech normal rate and tone, mood anxious, congruent affect, thoughts linear and intact, no evidence of delusions or hallucinations. Per pt's symptom tracker, pt reports SI as 2/5, though denies plan, or intent. This is within pt established baseline. Client Response/Progress/Benefit: []Pt responded well to session, engaged and participating. Pt reports feeling anxious this morning because pt knows they will have to return to work in a month. Pt receptive to group feedback on how to make that transition go smoother. Pt shared they had a really good evening last night as pt went to dinner with some co-workers and went for a walk. Pt was anxious about seeing these co-workers, but it went well and they were supportive. Pt stated they are worried about what to tell people when they return to work and the group offered ideas which pt appeared to benefit from. Pt will continue IOP tx to prevent decompensation, improve daily functioning, and combat negative self-talk. Narrative Note: []
--- NOTE | 2023-05-08 10:10 | BH.SGPN.GN ---
Behaviors/Mental Status: [] Eye contact is good. Motor activity is appropriate. Appearance is casual. Speech is Appropriate. Mood is anxious. Affect is congruent. Thoughts are linear and logical. No evidence of psychosis. Client Response/Progress/Benefit: [] Pt engaged participant AEB listening attentively to others, taking notes, and providing input at times. Participated in and was engaged during experiential activity. Engaged during interactive discussion on what failure means to the group in which peers identified that failure is ... not meeting expectations, not having a desired outcome, and not succeeding in a task. Group was able to identify impact of fear of failure. Client stated fear of failure has led to not applying themselves, not trying as hard, and avoid thinking about difficult things. Attentive during interactive discussion on the role that FOF plays in mental wellness, depression, anxiety, and growth. Benefited from increased awareness of how the role that FOF plays in mental health and decision-making. Will continue in IOP to challenge distortions, increase healthy coping, and prevent decompensation.
--- NOTE | 2023-05-08 11:10 | BH.SGPN.GN ---
Behaviors/Verbalizations/Mental Status: []Pt alert and oriented, casually dressed and groomed. Eye contact good. Motor activity appropriate. Speech within normal limits. Affect congruent, mood anxious and euthymic. Thoughts linear, logical, no signs of hallucinations or delusions. Client Response/Progress/Benefit: [] Pt responded well to session, engaged in the experiential activity and attentive throughout group processing. Pt reported fear of failure has kept Pt from applying for jobs and advancing in their career. Pt completed fear of failure worksheet and was able to identify thoughts and behaviors that reinforce personal fear of failure including: all or nothing thinking, self-doubt, and low energy/motivation. Pt participated in group discussion regarding strategies to overcome fear of failure. Identified wanting to work on starting to work at their desk at home to increase focus and motivation. Appeared to benefit from increased knowledge of strategies to combat fear of failure and gaining self-awareness. Pt will continue IOP tx to improve mood stability, reduce perfectionistic tendencies, and prevent decompensation. Narrative Note: []
--- NOTE | 2023-05-08 11:56 | PCM.BH.PN ---
Progress Note Progress Note: History of Present Illness/Interim History: The patient is a 22-year-old nonbinary, biological female person who is seen in follow-up at the [facility] program where she is being treated for depression and anxiety. I last saw the patient 1 week ago and she is stepping down from the PHP program to the IOP program today. The patient feels she is learning a lot in the program and feels that her mood is less depressed. Her sleep has improved also although she had a minor setback when she picked up her journal from the police station and read her prior suicide note. The patient is experiencing much less hopelessness and guilt. She has not required trazodone or Benadryl to help sleep lately. She denies any self-harm, passive thoughts of , suicidal ideation, homicidal ideation, hallucinations or delusions. She states that while she still may have occasional intrusive thoughts about other way she could have attempted suicide she feels this is distinctly different from thinking about actually committing suicide. These intrusive thoughts are of a more intellectual nature according to the patient. She is still little worried about going back to work in the future and getting approval for for short-term disability to attend [facility]. Current Psychiatric Medications: [] Wellbutrin XL 300 mg p.o. daily (x4 months); Cymbalta 90 mg p.o. daily (dose increased 3 weeks ago); trazodone: Not needing this in the last week. Mental Status Examination: [] The patient is a 22-year-old biological female who appears normal for stated age and is casually dressed and groomed with good hygiene. Eye contact is fair to good and speech is normal rate and rhythm and fluent with no pressure. Mood is anxious and mildly depressed. Affect is constricted. Thought process is goal-directed and organized. Thought content: There is no evidence of passive thoughts of , suicidal ideation, plan for suicide, homicidal ideation, hallucinations or delusions. Reality testing is intact. Intelligence is above average. Judgment is intact. Impulsivity is moderate to high. Insight is limited but improving. Diagnoses: [] 1. Major depressive disorder, recurrent, severe without psychosis 2. Generalized anxiety disorder 3. Strong cluster B traits 4. School, work and primary support issues Plan: [] The patient will stepdown from [facility] to [facility] and continue her participation in the program. The patient felt safe during the interview and if it anytime she does not feel safe she will let us know or go to the emergency department. No medication changes were made today. The patient will continue to follow-up with her outpatient providers and I will see the patient in follow-up in 2 weeks.
--- NOTE | 2023-05-08 12:01 | BH.DR.ITP ---
Initial Treatment Plan Patient Information Visit Information: ADMISSION DATE: EXPECTED LOS: 4-6 weeks Problems/Symptoms Problem #1:: Depression Symptom:: Sadness, guilt, hopelessness, biological disruption of sleep, recent passive thoughts of , recent suicidal ideation Problem #2:: Anxiety Symptom:: Worry, rumination
--- NOTE | 2023-05-08 14:27 | BH.MTP_ITS ---
Master Treatment Plan Patient Information Program Physician:: Dr. Lisandra Bañuelos Primary Therapist:: Irma CASTREJON Psychiatric Diagnoses Psychiatric Diagnoses:: Major depressive disorder, recurrent, severe without psychosis F 33.2; Generalized anxiety disorder Diagnosis Code(s):: F 33.2 Estimated LOS Estimated LOS (in weeks):: 6 Problem/Goal #1 Problem/Goal #1 Stated Goal:: Pt will reduce depressive symptoms, worthlessness, negative self- talk, guilt, and hopelessness due to major depressive disorder. Description of Barriers: Pt's work environment is a significant trigger for SI and depression. Pt has rigid thought patterns that reinforce depressive symptoms, fear of rejection, and self-criticism. Pt has a difficult time verbalizing and feeling their emotions. Functional Impact: Pt is a 22-year-old non-binary person with a history of depression and anxiety. Pt referred to [facility] tx following an psychiatric admission to [facility] due to a suicide attempt that was interrupted by excessive alcohol use. Pt completed [facility] and transitioned to [facility] level of care. Pt's SI has reduced since [facility], but pt still presents with a depressed mood, thoughts of , crying spells, hopelessness, negative thinking patterns, and guilt. Pt's symptoms are impacting their social, occupational, and daily functioning. Goal Relevant Strengths/Supports: Pt is intelligent, has supportive family and friends, and pt has multiple hobbies and interests. Objectives Objective #1: Stated Objective: Pt will learn and utilize 2-3 healthy coping strategies to better manage depressive symptoms as shown by a reduced DSM-5 scores for depression and SI. Interventions: Through group and individual sessions, therapist will help pt identify triggers and warning signs of depression and emotional dysregulation including emotional, physical, and behavioral changes. Therapist will teach pt various coping skills to manage her symptoms and give pt tangible resources to use to regulate emotions. Therapist will use cognitive restructuring techniques and help pt gain awareness of negative thoughts that reinforce guilt and depression. Therapist will provide psychoeducation on maintenance cycles and help pt learn ways to break unhealthy maintenance cycles. Therapist will help pt incorporate behavioral activation and assist pt in setting SMART goals. Discharge Criteria: Pt will have met this goal when can report learning and using at least 2 coping skills to manage depressive symptoms. Additionally, pt will have met this goal when depressive symptoms and SI have reduced on the DSM-5 scale. Target Date: 06/19/23 Review Date: 05/29/23 Status: open Objective #2: Stated Objective: Pt will identify at least 2-3 negative self-talk messages used to reinforce negative core beliefs and replace thoughts with positive, realistic messages. Interventions: therapist will help pt identify distorted, negative beliefs about self and replace with more realistic, affirmative messages. Therapist will use CBT to help pt increase insight to the connection between thoughts, emotions, and behaviors. Therapist will encourage pt to practice thought challenging. Discharge Criteria: Pt will have achieved this goal when can verbalize at least 2 negative self-talk messages and effectively replace those thoughts with affirmative, realistic messages. Target Date: 06/19/23 Review Date: 05/29/23 Status: open Problem/Goal #2 Problem/Goal #2 Stated Goal:: Pt will reduce anxiety and avoidance while increasing ability to function on daily basis. Description of Barriers: Pt's work environment is a significant trigger for SI and depression. Pt has rigid thought patterns that reinforce depressive symptoms, fear of rejection, and self-criticism. Pt has a difficult time verbalizing and feeling their emotions. Functional Impact: Pt is a 22-year-old non-binary person with a history of depression and anxiety. Pt referred to [facility] tx following an psychiatric admission to [facility] due to a suicide attempt that was interrupted by excessive alcohol use. Pt completed [facility] and transitioned to [facility] level of care. Pt's SI has reduced since [facility], but pt still presents with a depressed mood, thoughts of , crying spells, hopelessness, negative thinking patterns, and guilt. Pt's symptoms are impacting their social, occupational, and daily functioning. Goal Relevant Strengths/Supports: Pt is intelligent, has supportive family and friends, and pt has multiple hobbies and interests. Objectives Objective #1: Stated Objective: Pt will identify 2-3 anxiety triggers and 2 coping skills to use when feeling anxious to manage anxiety as shown by decreasing DSM- 5 scores for anxiety. Interventions: Therapist will provide education on anxiety, avoidance behaviors, and maintenance cycles. Therapist will help pt explore personal symptoms and warning signs of anxiety. Therapist will teach pt coping skills to improve emotional regulation, mindfulness, and distress tolerance to help pt cope with anxiety in the moment. Discharge Criteria: Pt will have accomplished this goal when can identify at least 2 triggers and report using 2 coping skills to manage anxiety. Additionally, pt will have accomplished this goal when DSM-5 scores show a reduction for anxiety. Target Date: 06/19/23 Review Date: 05/29/23 Status: open Objective #2: Stated Objective: Pt will reduce safety behaviors that reinforce anxiety by setting 1-2 small exposure goals a week to increase self-confidence, increase mastery, and reduce anxiety over time. Interventions: through group and individual sessions, pt will learn about the benefits of setting exposure goals to overcome anxiety-producing situations. Therapist will help pt set SMART goals and challenge barriers. Therapist will use cognitive restructuring techniques and help pt gain awareness of negative thoughts that reinforce avoidance behaviors and fear of judgement. Therapist will help pt incorporate mindfulness, opposite action, and self-talk strategies to manage anxiety. Discharge Criteria: Pt will have accomplished this goal when can report accomplishing at least one small exposure goal a week. Additionally, pt will be able to report decreased avoidance behaviors. Target Date: 06/19/23 Review Date: 05/29/23 Status: open
--- NOTE | 2023-05-08 14:27 | BH.MDN ---
Multi-Disciplinary Note Note 45-min Individual: Time Started:: 12:15 Date: 05/08/23 Purpose of session/treatment goals addressed:: To discuss goals for IOP level of care, practice thought challenging, and provide psychoeducation on emotions. Eye Contact:: Good Appearance:: Neat Speech:: Appropriate Mood:: Anxious and Depressed Affect:: Constricted Thoughts:: Logical and No evidence of hallucinations/delusions noted Staff Interventions:: thought challenging, CBT techniques, strengths perspective, goal setting, taught coping skills (practiced thought challenging) and other (gave handout on emotions and their jobs) Client Response:: Pt responded well to session, open to meeting with therapist. Pt reports they had a decent day yesterday as pt went for a walk with their dog and spent time with co-workers. Pt shared feeling anxious about returning to work in a few weeks, but did not want to talk about that today. Pt wanted to begin challenging some of their negative thought patterns that reinforce fear of failure, depression, and perfectionism. Pt shared that they often have the thought that if things go differently than I expect/plan, those things will be bad. Pt shared they mean that their is only one way to be successful and if that plan does not work, pt feels like a failure. Pt stated they notice this thinking also leads to pt actively avoiding their emotions if they are not good emotions like rajesh, motivation, etc. Pt receptive to learning about emotions and pt gained insight that although some emotions are more socially acceptable, like happiness, no emotion is better than another. Pt feels that they have not allowed themselves to believe this which is why pt tries to avoid sadness. Pt receptive to identifying what emotions make pt want to do and pt shared that anger/sorrow make pt want to quit. Pt receptive to reflecting more on this for homework. Pt also practiced thought challenging using a thought log and struggled. Pt does not feel ready to challenge thoughts on their own and will work on this again when pt meets with therapist on Saturday. Risks/Concerns:: Pt denies any active suicidal ideations, plan, or intent today. Pt scored a 1/5 for thoughts of suicide on their daily symptom tracker which is less than their baseline. Progress Toward Goals/Plan:: Pt made progress in PHP tx and today was their first day in IOP tx. Pt reports gaining skills and has been reporting less suicidal ideations. Pt continues to struggle with perfectionistic expectations for themselves, negative self-talk, numbing, and difficulty allowing self to be idle. Pt is receptive to challenging their thought patterns and working on sitting with the uncomfortable through setting goals to reduce perfectionism over time. Pt will continue IOP tx to prevent decompensation, improve daily functioning, and increase self-compassion. Time Stopped:: 13:03
--- NOTE | 2023-05-10 09:00 | BH.SGPN.GN ---
Behaviors/Verbalizations/Mental Status: [] Pt alert and oriented, neatly dressed and groomed. Eye contact good. Motor activity restless. Speech within normal limits. Affect flat, mood anxious. Thoughts linear, logical, no signs of hallucinations or delusions. Reviewed pt?s symptom tracker, no risk for suicidal ideation, plan, or intent 05/10/23 as pt's scores are within baseline. Client Response/Progress/Benefit: []Pt responded well to session, attentive and engaged. Pt reports feeling uneasy this morning sharing that they were triggered yesterday and they are having a hard time coping through the emotion. Pt stated that they did have some good moments yesterday which included spending time outside with a puppy and working on their bedroom. Pt receptive to encouragements from peers and continuous wave operator to practice self-care today and grounding skills. Pt appeared to benefit from challenging perspective. Pt will continue IOP tx to prevent decompensation, improve daily functioning, and increase ability to challenge distortions. Narrative Note: []
--- NOTE | 2023-05-10 10:10 | BH.SGPN.GN ---
Behaviors/Verbalizations/Mental Status: [] Eye contact is good. Motor activity is appropriate. Appearance is casual. Speech is Appropriate. Mood is depressed. Affect is congruent. Thoughts are linear and logical. No evidence of psychosis. Client Response/Progress/Benefit: [] Pt was an active participant in group discussions. Attentive during psychoeducation. Participated in interactive discussion on types of support. Pt reports his support as music, family, nature, art, and pets. Obstacles that neighborhood coordinator the way to utilizing support were noted to be isolation, fear of failure, expectations, and her anxiety. Participated in experiential activity and was able to connect this activity to group topic. Benefited from increased awareness of the benefits and importance of maintaining a balanced support system. Will continue in IOP to prevent decompensation/re-admission, stabilize mood, maintain safety, improve functioning to return to work. Narrative Note: []
--- NOTE | 2023-05-10 11:15 | BH.SGPN.GN ---
Behaviors/Verbalizations/Mental Status: []Client alert and oriented, casually dressed and groomed. Eye contact good. Motor activity appropriate. Speech within normal limits. Affect congruent, mood euthymic and anxious. Thoughts linear, logical, no signs of hallucinations or delusions. Client Response/Progress/Benefit: [] Client was an active participant throughout AEB contributing to small group discussion, participating in the activity, and taking notes. Client provided input during discussion on the types of support our supports can provide. Able to identify the types of supports provided by current support system. Client reported gaining awareness that they could benefit from more emotional and tangible supports. Shared this will help to improve their mood and feel more comfortable in their own space. Client identified steps to achieve this as continuing to ask their dad for help with purchasing things and identify small daily tasks to make continued progress. Client seemed to benefit from identifying the types of support and areas client could benefit from improving. Recommended to continue IOP tx to increase healthy coping, reduce depression, and improve overall functioning. Narrative Note: []
--- NOTE | 2023-05-10 14:00 | BH.MDN ---
Multi-Disciplinary Note Note 45-min Individual: Time Started:: 12:08 Date: 05/10/23 Purpose of session/treatment goals addressed:: To work on goal #1 of pt's tx plan. Another goal was to discuss plans for the weekend. Eye Contact:: Good Motor Activity:: Appropriate Appearance:: Neat Speech:: Appropriate Mood:: Euthymic and Anxious Affect:: Congruent Thoughts:: Linear, Logical and No evidence of hallucinations/delusions noted Staff Interventions:: thought challenging, CBT techniques, mindfulness skills, strengths perspective and other (discussed emotions and challenged perspective on emotions) Client Response:: Pt responded well to session, open to meeting with therapist. Pt stated they read through the handout about emotions given last session and found it helpful. Pt shared they believed that emotions were good or bad and they would try to not allow themselves to feel certain emotions. Pt stated they were unsuccessful in this and pt gained insight that pushing away emotions only makes them grow stronger. Pt reports they have been working on their room and they have read their journal. Pt is in a good mood today because pt will be going to visit one of their best friends at his school. Pt shared they are looking forward to this trip for many reasons including emotional support, distraction, and getting back into old hobbies. Pt is going to try painting with their friend this weekend. Pt shared they are still having some intrusive thoughts about suicide, but they deny any intent or plan. Talked about the whoosh response that happens with intrusive thoughts and how giving them value and attention reinforces the fear. Pt is doing well with practicing mindfulness and trying to dismiss intrusive thoughts. Risks/Concerns:: No report of active SI, plan, or intent. Pt reports thoughts of , but denies any SI. Pt is excited to go visit a friend this weekend. Progress Toward Goals/Plan:: Pt has transitioned to IOP level of care after successfully completing PHP. Pt continues to have consistent attendance and pt is engaged in group sessions. Pt is consistent with personal goals and pt is working on challenging their thought patterns. Pt receptive to continuing to work on self-compassion, mindfully feeling emotions, and communicating with supports. Pt will continue IOP tx to prevent decompensation, help pt transition back to work, and reduce negative thinking patterns. Time Stopped:: 12:55
--- NOTE | 2023-05-13 09:00 | BH.SGPN.GN ---
Behaviors/Verbalizations/Mental Status: [] Pt eye contact good, neat and casually dressed, motor activity appropriate, speech normal rate and tone, mood euthymic, congruent affect, thoughts linear and intact, no evidence of delusions or hallucinations. Per pt's symptom tracker, pt reports SI as 3/5, though denies plan, or intent. This is within pt established baseline. Client Response/Progress/Benefit: [] Client responded well to session as evidenced by her listening attentively to others and sharing thoughts and feelings. Client reported mental health positive as making progress on redecorating their room. Client reported additional positive as taking time to visit a friend in [place] and getting paint supplies while doing so as well. Client stated stressor as writing in their journal as this was the first time doing so since their suicide attempt. Able to process with group. Seemed to benefit from support from peers. Client to continue IOP to continue use of healthy coping skills, work on continued communication with supports, and prevent decompensation. Narrative Note: []
--- NOTE | 2023-05-13 10:10 | BH.SGPN.GN ---
Behaviors/Verbalizations/Mental Status: [] Eye contact is good. Motor activity is appropriate. Appearance is casual. Speech is Appropriate. Mood is dysthymic. Affect is constricted. Thoughts are linear and logical. No evidence of psychosis. Client Response/Progress/Benefit: [] Client was an attentive during interactive group discussions by writing notes and sharing when prompted. Attentive during psychoeducation on the six types of boundaries (physical, emotional, intellectual, sexual, time, and material) AEB note-taking. Along with peers contributed to interactive discussion on defining what a boundary is in mental health. Client along with peers identified challenges to setting boundaries which included; fear of other's response, guilt, fear of losing relationships, and lack of confidence. Client along with peers identified the benefits to setting boundaries. Client shared they struggle with setting boundaries especially when they think it's a task that they should be able to do on their own. Client benefited from increased awareness and insight on the importance/benefit to setting health boundaries. Will continue in IOP to view of self, challenge anxious thoughts, and prevent decompensation.
--- NOTE | 2023-05-13 11:10 | BH.SGPN.GN ---
Behaviors/Verbalizations/Mental Status: []Pt alert and oriented, neatly dressed and groomed. Eye contact good. Motor activity appropriate. Speech within normal limits. Affect congruent, mood depressed. Thoughts linear, logical, no signs of hallucinations or delusions. Client Response/Progress/Benefit: []Pt responded well to session AEB listening attentively to peers and providing input. Pt attentive during psychoeducation on the different boundary styles. Pt reports having rigid emotional boundaries, porous work boundaries, and healthy boundaries with family and friends. Able to connect impact current boundary styles impact on functioning. Pt was given a handout on strategies for healthy boundary setting. Appeared to benefit from increasing insight to boundary setting and the impacts on mental health. Pt wants to work on small exposure goals to practice setting boundaries with safe people. Will continue IOP tx to challenge distortions, continue use of healthy coping, and prevent decompensation. Narrative Note: []
--- NOTE | 2023-05-14 09:00 | BH.SGPN.GN ---
Behaviors/Verbalizations/Mental Status: [] Pt alert and oriented, neatly dressed and groomed. Eye contact good. Motor activity restless. Speech within normal limits. Affect constricted, mood tired and depressed. Thoughts linear, logical, no signs of hallucinations or delusions. Reviewed pt?s symptom tracker, pt's scores are within pt's baseline 3/5 for thoughts and 0/5 for intent. Client Response/Progress/Benefit: []Pt responded well to session, attentive and engaged. Pt reports feeling very tired this morning and pt shared they continue to have struggles with falling asleep. Pt shared they have an appointment tomorrow with their outpatient psychiatrist and pt will let them know that they are struggling. Pt has awareness that when they are tired their brain is more sticky to negative and intrusive thoughts. Despite being down and tired, pt still utilized healthy coping skills over the weekend like engaging in their online community, cleaning their birds cage, and playing uplifting music. Pt appeared to benefit from reflecting on their application of coping skills. Pt will continue IOP tx to promote mood stability, reduce intensity of intrusive thoughts, and improve self-compassion. Narrative Note: []
--- NOTE | 2023-05-14 10:14 | BH.SGPN.GN ---
Behaviors/Verbalizations/Mental Status: []Client alert and oriented, casually dressed and groomed. Eye contact good. Motor activity appropriate. Speech within normal limits. Affect congruent, mood euthymic and anxious. Thoughts linear, logical, no signs of hallucinations or delusions. Client Response/Progress/Benefit: []Client receptive of session AEB providing input throughout, listening attentively to others, and taking notes. Attentive throughout psychoeducation on the cognitive triangle and maintenance cycles. Worked on identifying own vicious cycle. Engaged in group discussion reviewing the impact of daily activities and behaviors on either reinforcing unhealthy maintenance cycles and depression or assisting in reducing symptoms (?down? vs ?up? activities). Client identified common ?down? activities they engage in as: staying indoors, violent or gory media consumption, and not eating. Common ?Up? activities client identified included: going outside, playing with their pets, spending time with others, and cleaning. Appeared to benefit from increased awareness of current behaviors and impact these have on mental health. Pt to continue IOP to increase healthy coping skills, challenge distortions, and prevent decompensation. Narrative Note: []
--- NOTE | 2023-05-14 11:10 | BH.SGPN.GN ---
Behaviors/Verbalizations/Mental Status: [] Eye contact is good. Motor activity is appropriate. Appearance is casual. Speech is Appropriate. Mood is anxious. Affect is congruent. Thoughts are linear and logical. No evidence of psychosis. Client Response/Progress/Benefit: [] Pt responded well to session, attentive and engaged in group discussions and activity. Group shared having patience and being willing to re-evaluate helped the group be successful during activity. Group discussed values and the benefits that knowing one's values can have on one's mental health. Pt explored own values and identified career, hobbies, emotional health and family relationships as their top values. Pt set goals to reach out to others, plan something fun with family, and check job board weekly in order to live according to values. Pt appeared to benefit from exploring values and creating a weekly goal. Will continue in IOP to prevent decompensation/re-admission to psych unit, increase healthy coping, and to improve functioning to return to work. Narrative Note: []
--- NOTE | 2023-05-14 15:25 | BH.MDN_ITS ---
Multi-Disciplinary Note Note 30-min Individual: Time Started:: 12:00 Date: 05/14/23 Purpose of session/treatment goals addressed:: To work on goal #1 of pt's tx plan and to review progress. Eye Contact:: Good Motor Activity:: Appropriate Appearance:: Neat Speech:: Appropriate Mood:: Other (calm) Affect:: Congruent Thoughts:: Linear, Logical and No evidence of hallucinations/delusions noted Staff Interventions:: thought challenging, CBT techniques, strengths perspective and other (processed current stressors.) Client Response:: Pt responded well to session, open to meeting with therapist. Pt reports feeling better than this morning and that group helped pt today. Pt shared their sleep has been poor and pt is having a difficult time staying asleep which then leads to more intrusive thoughts and lack of energy in the morning. Pt shared their sleep hygiene routine and it seems healthy. Pt will talk with their psychiatrist tomorrow about potential medication changes and pt hopes to nap today. Pt stated they are trying to stay active and use healthy coping skills, but pt continues to struggle with wanting to push away uncomfortable feelings. One recent trigger pt had was wanting to write in their journal, but feeling too anxious to write in it when they were sad for fear that they would end up becoming suicidal. Talked about external vs internal locus of control and how pt has agency in their own life. Pt has been learning to identify warning signs and utilizing different coping skills which will help pt prevent decompensation. Pt seemed to agree with this and was receptive to practicing writing one sentence in their journal when sad. Pt will continue to work on their bedroom, engage in painting, and go for walks as these things help pt's mental health. Risks/Concerns:: Pt reports having more intrusive thoughts of suicide lately, but pt denies that these are active and denies any intent to act on these thoughts. Pt shared fear of trying something like that again. Pt is f uture oriented. Progress Toward Goals/Plan:: Pt is making progress towards tx goals AEB pt's self-report of utilizing healthy coping skills outside of IOP tx. Pt reports feeling better than they did this morning, but pt is still struggling with sleep which is making their thoughts more sticky. Pt has an appointment with their psychiatrist tomorrow and plans to bring up their sleeping issues. Pt reports less isolation and rumination, but pt still endorses a depressed mood, lack of concentration, difficulty accepting/feeling their feelings, and thoughts of . Pt is getting into new hobbies and engaging in old ones which is positive. Pt will continue IOP tx to further reduce negative thinking, increase resilience, and improve mood stability. Time Stopped:: 12:30
== END 2023-05-16 23:59 | disposition home or self-care (01) ==
LOC: BHIOP 08:04
PROVIDERS: Referring Provider Psychiatry & Neurology Psychiatry; Visit Provider Psychiatry & Neurology Psychiatry
DX: F33.2 Major depressive disorder, recurrent severe without psychotic features (principal); F41.1 Generalized anxiety disorder
CPT/HCPCS: S9480; 90832; 90834; 90853

== ENCOUNTER 2023-05-17 08:31 | Outpatient (RCR) | payer OTHER, SELFPAY ==
--- NOTE | 2023-05-17 09:05 | BH.SGPN.GN ---
Behaviors/Verbalizations/Mental Status: [] Eye contact is good. Motor activity is appropriate. Appearance is casual. Speech is Appropriate. Mood is anxious. Affect is congruent. Thoughts are linear and logical. No evidence of psychosis. Reviewed daily check in sheet and pt reports 1/5 for suicidal thoughts and 0/5 for intent. This is below baseline. Client Response/Progress/Benefit: [] Pt participated at times during the group discussion. Attentive. Daily symptom tracker notes 2/5 for depression and 1/5 for anxiety. Mental health win was reconnecting with friends. Elaborated on how she did this and the benefits that this has on her mental health. Emotion for today is determined. My mood is OK today. Superficial check-in however insight into the importance of connection with peers to her mental health. Progress noted per pt report. Will continue in IOP to maintain safety, prevent decompensation/re-admission to psych unit, and to improve functioning to return to work. Narrative Note: []
--- NOTE | 2023-05-17 10:10 | BH.SGPN.GN ---
Behaviors/Verbalizations/Mental Status: []Pt alert and oriented, casually dressed and groomed. Eye contact fair. Motor activity appropriate. Speech within normal limits. Affect constricted, mood euthymic. Thoughts linear, logical, no signs of hallucinations or delusions. Client Response/Progress/Benefit: [] Pt receptive to session AEB contributing to small group discussion, as well as listening attentively to others, and taking notes.Worked with group to brainstorm the positive and negative aspects of stress on physical and mental health. Group did well to identify the benefits of stress as well as the impact of distress on performance, relationships, and mental health. Pt identified their personal top stressors as: education, career, recovery, and feeling like a failure. Pt seemed to benefit from increased awareness of current stressors and impact stress has on mental health. Recommended to continue IOP tx to continue use of healthy coping skills, challenge distorted/negative thoughts, and prevent decompensation.
--- NOTE | 2023-05-17 11:15 | BH.SGPN.GN ---
Behaviors/Verbalizations/Mental Status: []Pt alert and oriented, neatly dressed and groomed. Eye contact good. Motor activity appropriate. Speech within normal limits. Affect congruent, mood anxious. Thoughts linear, logical, no signs of hallucinations or delusions. Client Response/Progress/Benefit: []Pt was an active participant in group discussions and experiential activity. Attentive during psychoeducation on the 4 A's (Avoid, adapt, alter, accept) of coping with stress as well as strategies to identify stressors in which one has no control, little control, or a great deal of control over. Was able to identify the connection between the experimental activity and utilization of stress management skills. Pt reported feeling frustrated during the activity because of the uncertainty, but stuck with it and was successful. Pt was also visibly irritated when given feedback which pt has shared in the past that they struggle with this. Benefited from increased awareness of stress management strategies. Will continue in IOP to promote mood stability, combat distortions, and increase emotional regulation skills. Narrative Note: []
--- NOTE | 2023-05-17 13:51 | BH.MDN ---
Multi-Disciplinary Note Note 45-min Individual: Time Started:: 12:15 Date: 05/17/23 Purpose of session/treatment goals addressed:: To work on goal #1 of pt's tx plan by identifying negative core beliefs and beginning to identify new core beliefs. Eye Contact:: Good Motor Activity:: Appropriate Appearance:: Casual Speech:: Soft Mood:: Anxious and Depressed Affect:: Congruent Thoughts:: Linear, Logical and No evidence of hallucinations/delusions noted Staff Interventions:: thought challenging, psychoeducation on: (core beliefs and how to create new core beliefs), CBT techniques, strengths perspective and other (reviewed worksheet on gathering evidence on new core beliefs.) Client Response:: Pt responded well to session, open to meeting with therapist. Pt reports they are doing well in some areas such as consistently taking care of their birds and dog, organizing and cleaning their room, and getting into hobbies. Pt stated they still do not feel where they should be and pt feels that maybe this is due to pt not allowing themselves to feel sad and their negative thinking patterns. Pt receptive to learning about their negative core beliefs and willing to identify what new beliefs pt wants to form. Pt stated this is really hard to think about but pt understands that they will continue to struggle with lack of self-compassion and fear of failure if pt does not form different core beliefs. Pt identified the following core beliefs: I failed in my career I'm not good enough and I'll never progress like I want. Pt state these beliefs lead to pt disqualifying and minimizing their accomplishments and avoiding challenges. Pt shared that a lot of their core beliefs formed in high school and revolve around their worth being tied to achievements. Pt stated they are ready to challenge the belief of I'm not good enough. Pt shared they could not come up with a new core belief, but then pt identified I am skilled and my skills with get better. Discussed how creating new core beliefs requires pt to gather evidence that supports pt's new core belief no matter how small or insignificant pt feels it it. Pt given a worksheet to work on this. Risks/Concerns:: Pt denies any active SI, plan, or intent to date. Pt reports having fleeting SI at times, but pt reports these thoughts are intrusive with no intent. Pt is future oriented. Progress Toward Goals/Plan:: Pt continues to make progress towards their tx goals AEB pt's report of working on daily goals of organizing and cleaning their room, spending time with friends and family, engaging in hobbies, and spending time outside. Pt is still struggling with negative thoughts of self, unrealistic expectations, and fear of failure. This contributes to ongoing avoidance behaviors with certain activities (journaling), applying for different jobs, and reaching out to her current employer about returning to work. Pt receptive to working on core beliefs. Pt will continue IOP tx to promote mood stability, increase self-compassion practices, and improve work-related functioning. Time Stopped:: 13:00
--- NOTE | 2023-05-21 09:05 | BH.SGPN.GN ---
Behaviors/Verbalizations/Mental Status: []Pt alert and oriented, casually dressed and groomed. Eye contact good. Motor activity appropriate. Speech within normal limits. Affect congruent, mood dysthymic and anxious. Thoughts linear, logical, no signs of hallucinations or delusions. Reviewed pt?s symptom tracker, suicidal ideation reported as 2/5 which is within pt established baseline, denies plan, or active intent as of 05/21/23. Client Response/Progress/Benefit: [] Pt responded well to session, open to processing with group and engaged. Pt reports feeling disconnected this morning. Shared a current mental health ?win? as getting to spend time with their birds over the weekend and discussed that their pets are a major source of comfort. Went on to share an additional win as spending time with family visiting their brother?s dorm. Shared when becoming overstimulated they were able to self-regulate and prevent lashing out at anyone. Described current stressor as decreased appetite. Receptive of group?s feedback and suggestions on ways to ensure they are still getting the nutrients needed. Pt will continue IOP tx to promote mood stability, improve self-care, and continue to improve functioning. Narrative Note: []
--- NOTE | 2023-05-21 10:10 | BH.SGPN.GN ---
Behaviors/Verbalizations/Mental Status: [] Client alert and oriented, casually dressed and groomed. Eye contact fair. Motor activity appropriate. Speech within normal limits. Affect constricted, mood dysthymic. Thoughts linear, logical, no signs of hallucinations or delusions Client Response/Progress/Benefit: [] Client was initially more quiet than usual, but showed increased engagement during small group discussion and experiential activity. Attentive during psychoeducation on resilience. Participated in interactive discussion with peers on the definition of resilience and where it comes from. Group identified what can impact resilience. Identified barriers to resilience to include: extreme thinking, outside comfort zone, learned helplessness, and repeated traumas/hardships. Worked well with peers in small group in which they identified factors that contribute to resilience. Stated when they are struggling with being resilient they tend to notice mental health symptoms decompensating. Benefited from increased awareness of resilience and the factors that contribute to building resilience. Will continue in IOP to challenge distorted/negative thoughts, increase consistent use of healthy coping skills, and prevent decompensation.
--- NOTE | 2023-05-21 11:10 | BH.SGPN.GN ---
Behaviors/Verbalizations/Mental Status: []Pt alert and oriented, casually dressed and groomed. Eye contact good. Motor activity appropriate. Speech soft. Affect constricted, mood anxious. Thoughts linear, logical, no signs of hallucinations or delusions. Client Response/Progress/Benefit: []Pt responded well to session AEB completing the resilience worksheet provided. Pt actively participated in the discussion and worked cooperatively with group to identify strategies to enhance each of the components discussed. Pt reports belief they already use resilience trait of ?making connections, moving towards my goals, and self-awareness.? Pt discussed that they could work on nurturing a positive view of self, maintaining a hopeful outlook, and accepting that change is a part of living.? Pt seemed to benefit from discussing strategies for improving personal resilience and identifying resilience traits Pt already possesses. Will continue IOP tx to combat distorted thoughts, improve daily functioning, and improve mood stability. Narrative Note: []
--- NOTE | 2023-05-21 13:47 | BH.MDN_ITS ---
Multi-Disciplinary Note Note 45-min Individual: Time Started:: 12:05 Date: 05/21/23 Purpose of session/treatment goals addressed:: To work on goal #2 of pt's tx plan and to discuss return to work. Eye Contact:: Good Motor Activity:: Appropriate Appearance:: Neat Speech:: Appropriate Mood:: Euthymic and Anxious Affect:: Congruent Thoughts:: Linear, Logical and No evidence of hallucinations/delusions noted Staff Interventions:: thought challenging, CBT techniques, strengths perspective, goal setting and other (discussed returning to work) Client Response:: Pt responded well to session, open to meeting with therapist. Pt reports the weekend went well and pt enjoyed moments from it including spending time with their family, practicing self-care, and using opposite action. Pt shared they were proud of themselves for drinking a little this weekend with their family. Pt has been avoiding drinking not because of addiction or issue, but because pt is worried if they drink, pt will become severely depressed and suicidal. Pt shared that they did not feel either of those things, the worst thing that happened was I got a stomach ache. This experience helped pt challenge emotional reasoning and remind themselves that they have control over how they cope. Pt shared they enjoyed spending time with their siblings and animals, but yesterday pt felt like I didn't really do much. Pt stated they actually did do things, but pt feels restless or like they are on autopilot sometimes. Pt did not complete their homework of gathering evidence for new core beliefs, but receptive to doing this in session. Pt gather evidence for belief of I have skills and I will continue to build skills. This evidence included; being a good problem-solver with their computer, learning new art skills, and having a lot of things to talk about with friends. Pt receptive to collecting more evidence this week. Pt also receptive to reaching out to their HR about return to work expectations and creating a return to work plan later this week. Pt able to challenge some anxious thoughts about returning to work during session. Risks/Concerns:: Pt denies any active SI, plan, or intent as of 05/21/23. Pt had some passive SI yesterday, but pt denied any intent. Progress Toward Goals/Plan:: Pt is making progress towards tx goals AEB pt reporting use of healthy coping skills outside of IOP and their reduction in DSM-5 scores by 32% since admission. Pt's scores for depression have not decreased since admission, but anxiety has gone down. Pt is communicating more effectively with their supports and they are utilizing opposite action. Pt is very anxious about going back to work and pt still struggles with giving themselves credit and having unrealistic for themselves. Pt will continue IOP tx to promote mood stability, reduce negative thinking patterns, and improve self- compassion. Time Stopped:: 12:45
--- NOTE | 2023-05-21 13:48 | BH.TPR ---
Treatment Plan Review Demographics Date of Admission:: 05/08/23 Date of Treatment Plan Review:: 05/21/23 Admitting Diagnoses:: Major depressive disorder, recurrent, severe without psychosis F 33.2; Generalized anxiety disorder; Strong cluster B traits Current Diagnoses:: Major depressive disorder, recurrent, severe without psychosis F 33.2; Generalized anxiety disorder; Strong cluster B traits Patient Status Patient's Response to Treatment:: Pt has responded well to treatment AEB pt consistently attending IOP sessions and reduction of anxiety and overall symptoms since admission. Pt contributes well during individual sessions and is engaged during group sessions. Pt applies coping skills outside of IOP and reports overall mood is improving and pt is gaining more awareness of distorted thought patterns. Status of Current Problems and Symptoms: Depressed mood with occasional intrusive thoughts of suicide, but no intent or plans. Anxiety about returning to work and being able to adjust to their job/advocate for themselves. Fear of failure, all or nothing thinking and expectations of self, and avoidance behaviors. Progress Problem #1: Problem Name:: depressive sx, worthlessness, negative self-talk, guilt, and hopelessness Status of Goals:: Objective 1- in progress. Pt?s DSM-5 scores for depression and SI have not decreased since admission, but pt reports they minimized the intensity of their symptoms at admission. Pt reports they are using opposite action consistently and per the daily symptom tracker, pt's SI is less than it was at admission. Objective 2- in progress. Pt is working on catching distortions that reinforce worthlessness, guilt, and hopelessness. Pt also working on creating new, more balanced core beliefs. Team Recommendations:: Treatment rx recommends pt continue working on this goal as pt's negative self-talk continues to reinforce fear of failure, depression, and hopelessness. Pt is working on combating these negative thoughts and forming new core beliefs. Problem #2: Problem Name:: Anxiety, avoidance, rumination, and perfectionism Status of Goals:: Objective 1- in progress. Pt reports a 14% reduction in anxiety since admission and pt can more easily utilize calming skills when triggered. Pt also reports less avoidance as pt has been spending time with people, organizing their room, and pt even drank socially which was a major anxiety trigger. Objective 2- complete with ongoing work encouraged. Pt is increasing awareness of their avoidance behaviors and how these reinforce perfectionism and fear of failure. Pt has been working on sitting with the uncomfortable and setting small exposure goals. Pt will continue to work on this objective, especially with returning to work. Team Recommendations:: Treatment tx recommends that identify accommodations to help pt return to work with less anxiety. Additionally, pt has been avoiding looking for new jobs and applying for different grade schools due to fear of failure, so pt could benefit from beginning to work towards this goal again. Additionally, pt can continue to work on reducing avoidance and gaining mastery.
--- NOTE | 2023-05-22 09:01 | BH.SGPN.GN ---
Behaviors/Verbalizations/Mental Status: []Pt alert and oriented, casually dressed and groomed. Eye contact fair. Motor activity appropriate. Speech within normal limits. Affect constricted, mood euthymic. Thoughts linear, logical, no signs of hallucinations or delusions. Reviewed pt?s symptom tracker indicates a 2/5, with 5 being severe, for suicidal thoughts and a 0/5 for suicidal intention. This is below baseline for suicidal thoughts/intention for pt. Pt indicated on symptom tracker they are functioning better and is mood is improved. Does not present with imminent risk to harm self or others. Client Response/Progress/Benefit: []Pt responded well to session, open to processing with group and engaged. Pt reported mental health positive as making progress with their pet birds. Pt stated additional positive as journaling last night about a song and stated it wasn't a negative journaling entry. Reported it's something they haven't done in awhile and was good to get back into doing. 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 Pt stated they are anxious about how work will respond and recognizes putting off this email won't make it better. Pt appeared to benefit from supportive feedback of the group, as well as reflecting on mental health wins. Pt will continue IOP tx to promote mood stability, improve consistency of self-care, and continue to improve functioning.
--- NOTE | 2023-05-22 10:10 | BH.SGPN.GN ---
Behaviors/Verbalizations/Mental Status: [] Eye contact is good. Motor activity is appropriate. Appearance is casual. Speech is Appropriate. Mood is depressed. Affect is congruent. Thoughts are linear and logical. No evidence of psychosis. Client Response/Progress/Benefit: [] Client responded well to session, attentive to discussions, taking notes. Attentive during psychoeducation about social and perceived stigma. Participated during interaction discussions in which group defined stigma and identified the impact that social stigma and self stigma can have on an individual. Pt provided examples of stigma impacted her and prevent her from applying to jobs and asking for help. Stigma often led her to tell herself I'm a failure and not good enough. Client seemed to benefit from increased awareness of how mental health stigma can impact progress and self-worth. Will continue in IOP to prevent decompensation/re-admission to psych unit, maintain safety, increase healthy coping, and improve functioning to return to work. Narrative Note: []
--- NOTE | 2023-05-22 11:12 | BH.SGPN.GN ---
Behaviors/Verbalizations/Mental Status: []Client alert and oriented, casually dressed and groomed. Eye contact good. Motor activity appropriate. Speech within normal limits. Affect congruent, mood anxious and dysthymic. Thoughts linear, logical, no signs of hallucinations or delusions. Client Response/Progress/Benefit:?[] Client engaged participant AEB participating in the activity, providing input during small group discussion, and listening attentively to others. Client appeared to connect with discussion in the benefits of addressing mental health stigma which included: improved relationships, increased willingness to seek help, increased happiness, and improved confidence. Group brainstormed strategies to combat social and perceived stigma. ?Client shared one thing they can personally do to combat stigma is to talk about their mental health more openly and honestly with her close supports as well as ask for help when struggling. Appeared to benefit from increasing awareness of strategies to combat stigma. Will continue IOP tx to continue to reduce anxiety, improve emotion regulation and prevent decompensation. Narrative Note: []
--- NOTE | 2023-05-23 09:10 | BH.SGPN.GN ---
Behaviors/Verbalizations/Mental Status: [] Eye contact is good. Motor activity is appropriate. Appearance is casual. Speech is Appropriate. Mood is depressed. Affect is flat. Thoughts are linear and logical. No evidence of psychosis. Reviewed daily check in sheet and pt reports 1/5 for suicidal thoughts and 0/5 for intent. Baseline. Client Response/Progress/Benefit: [] Pt participated in group discussion. Attentive. Daily symptom tracker notes 2/5 for depression/anxiety. Pt discussed ruminations regarding her return to work which has escalated her depression and anxiety. Difficulty with advocating for herself as she is fearful of how others will view her. Negative self-talk. Feeling she is not worthy of accommodations and that she should be able to return and function normally. Group was helpful with challenging and reframing her thoughts and providing different perspectives which was beneficial. Benefited from group support, encouragement, and feedback. Will continue in IOP to maintain safety, increase healthy coping, prevent decompensation/re-admission, and to improve functioning to return to work. Narrative Note: []
--- NOTE | 2023-05-23 11:10 | BH.SGPN.GN ---
Behaviors/Verbalizations/Mental Status: []Pt alert and oriented, casually dressed and groomed. Eye contact good. Motor activity appropriate. Speech within normal limits. Affect congruent, mood euthymic. Thoughts linear, logical, no signs of hallucinations or delusions. Client Response/Progress/Benefit: [] Pt engaged in session AEB pt listening attentively to peers and providing input. Attentive during psychoeducation on 4 zones of regulation. Pt able to identify feelings and behaviors for each zone. Pt identified coping skills one can use to support self in each zone. Reported skills will practice when needs to manage emotions include: remind self of progress, ask for help, stretch, exercise, and take a break. Benefited from increased education on zones of regulation or stages of alertness for emotions and healthy coping skills to use for each zone. Pt to continue IOP to increase healthy coping skills, challenge distorted thoughts, and prevent decompensation.
--- NOTE | 2023-05-23 11:30 | BH.MDN ---
Multi-Disciplinary Note Note 30-min Individual: Time Started:: 10:30 Date: 05/23/23 Purpose of session/treatment goals addressed:: To review progress, discuss return to work, and challenge distortions. Eye Contact:: Good Motor Activity:: Restless Appearance:: Casual Speech:: Soft Mood:: Anxious Affect:: Constricted (tearful) Thoughts:: Other (ruminations) and No evidence of hallucinations/delusions noted Staff Interventions:: thought challenging, motivational interviewing, CBT techniques, strengths perspective, reviewed DSM-5 and other (discussed return to work accommodations) Client Response:: Pt responded well to session, open to meeting with therapist. Pt reports engaging in a lot of hobbies and recently started a painting. Pt still has not done their homework of writing down evidence for having skills and being good enough. Pt shared this is because anytime they think of something, pt immediately tells themselves this isn't important enough to write down. Pt receptive to thought challenging and recognizing that it will feel uncomfortable for a while to change their beliefs of self. Pt encouraged to continue trying to write things down to give themselves credit for knowing that if pt gathers enough evidence, pt will begin to believe these. Pt identified their ideal return to work plan which included several accommodations pt thinks would benefit their mental health. 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 Pt wants to work in a different setting, but pt is unsure this will get approved. Pt encouraged to look at the evidence that shows pt that their employer is supportive and accommodating when pt gets anxious, self-doubting thoughts. Risks/Concerns:: Pt denies any active suicidal ideations, plan, or intent as of 05/23/23. Pt still has occasional intrusive, suicidal ideations, but denies she wants to act on these thoughts. Progress Toward Goals/Plan:: Pt continues to make progress towards tx goals AEB pt's self-report of utilizing coping skills outside of IOP. Pt's overall DSM-5 scores have also decreased since admission with anxiety decreasing by 14% since admission. Pt continues to endorse a depressed mood, anxiety with rumination and avoidance, and negative thoughts of self. Therapist helped pt develop their return to work plan which included some accommodations to pt's daily tasks at work. Pt is anxious about returning to work specifically returning to certain tasks pt has to do, but pt is hoping they get accommodations. IOP staff will fax over pt's paperwork within the next few days. Pt will continue IOP tx to promote mood stability, reduce negative self-talk, and improve work-related functioning. Time Stopped:: 11:00
--- NOTE | 2023-05-30 09:05 | BH.SGPN.GN ---
Behaviors/Verbalizations/Mental Status: []Pt alert and oriented, casually dressed and groomed. Eye contact good. Motor activity restless. Speech within normal limits. Affect constricted, mood stressed. Thoughts linear, logical, no signs of hallucinations or delusions. Reviewed pt?s symptom tracker, no suicidal ideation reported, denies plan, or active intent as of 05/30/23. Client Response/Progress/Benefit: []Pt responded well to session, attentive and engaged. Pt reports feeling busy this morning as pt has a lot of tasks they have to accomplish. Pt shared they feel stressed about their car and they are going to get a second opinion on botello. Pt also went to a concert with their sister and this was fun, but pt had a moment of sadness while there. Pt continues to struggle with all or nothing expectations of their mental health. When pt becomes sad or anxious, they then think it will lead to a spiral and a suicide attempt. Pt reminded that it is normal to feel many emotions at once and to continue to be aware of warning signs. Pt shared going to the concert was a mental health win and pt was able to bounce back from being sad. Pt appeared to benefit from connecting with peers and reflecting on healthy coping skills they could use. Pt will continue IOP tx to reduce negative thinking patterns, improve work-related functioning, and increase self-compassion. Narrative Note: []
--- NOTE | 2023-05-30 11:15 | BH.SGPN.GN ---
Behaviors/Verbalizations/Mental Status: []Client alert and oriented, casually dressed and groomed. Eye contact fair. Motor activity appropriate. Speech within normal limits. Affect constricted, mood euthymic. Thoughts linear, logical, no signs of hallucinations or delusions. Client Response/Progress/Benefit: []Pt was attentive throughout AEB contributing at times to small group discussion and self-reflection. Group finished processing cues to anger worksheet. Pt worked on completing own anger cycle. Pt completed personal anger cycle. Identified triggering event, negative thoughts, emotional response, physical symptoms, and behavioral response. Pt attentive as group brainstormed healthy coping skills for better managing anger which included: music, walking/exercise, taking a break, grounding tools, reflection, and journaling. Pt worked in small groups to identify ways could interrupt their anger cycle. Stated they want to work on deep breathing and try to dismiss it and accept to interrupt their anger cycle. Pt appeared to benefit from identifying different techniques to manage anger as well as gaining awareness of potential consequences of unmanaged anger. Will continue IOP tx to continue use of healthy coping skills, challenge distorted/negative thoughts, and prevent decompensation.
--- NOTE | 2023-05-30 15:55 | BH.MDN ---
Multi-Disciplinary Note Note 30-min Individual: Time Started:: 10:25 Date: 05/30/23 Purpose of session/treatment goals addressed:: To work on goal #2 of pt's tx plan. Another goal was to acknowledge progress. Eye Contact:: Good Motor Activity:: Appropriate Appearance:: Neat Speech:: Appropriate Mood:: Euthymic and Anxious Affect:: Congruent Thoughts:: Linear, Logical and No evidence of hallucinations/delusions noted Staff Interventions:: thought challenging, CBT techniques, strengths perspective and other (discussed self-reflection strategies.) Client Response:: Pt responded well to session, open to meeting with therapist. Pt reports feeling less anxious this week about returning to work and pt's affect was brighter today. Pt feels that they will be able to slowly transition back to certain tasks at work and feels relief that they will not have to do some parts of their job. 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 Pt receptive to discussing strategies that could help pt return to work. Some of the strategies included scheduling weekly hangouts with friends and practicing routine check-ins with self. Pt stated the check-ins will be helpful because pt struggles with catching symptoms early and then pt feels overwhelmed. Pt also is going to see if they would be able to listen to music at work to help regulate mood. Pt shared they did their homework from last session and wrote down things that that support their new core belief, but they forgot their sheet. Pt encouraged to continue doing this. Pt stated they also reached out to their outpatient therapist and got to schedule several sessions in advance which reduces pt's anxiety. Risks/Concerns:: Pt denies any active SI, plan, or intent as of 05/30/23. Pt still has occasional, fleeting thoughts of . Progress Toward Goals/Plan:: Pt continues to make progress towards tx goals AEB pt's self-report of utilizing coping skills outside of IOP. Pt reports feeling less anxious about returning to work than last week. Pt continues to endorse a depressed mood, anxiety with rumination and avoidance, and negative thoughts of self. Pt's work is going to accommodate pt which is decreasing pt's anxiety and helping pt feel more confident. Pt will continue IOP tx to promote mood stability, reduce negative self-talk, and improve work-related functioning. Time Stopped:: 10:55
--- NOTE | 2023-05-31 09:01 | BH.SGPN.GN ---
Behaviors/Verbalizations/Mental Status: []Pt alert and oriented, casually dressed and groomed. Eye contact good. Motor activity appropriate. Speech within normal limits. Affect congruent, mood slightly anxious. Thoughts linear, logical, no signs of hallucinations or delusions. Reviewed pt?s symptom tracker, reported 1/5, with 5 being severe and 0 being none, for suicidal thoughts, and a 0/5 for suicidal intention. This is below pt's baseline. Future oriented. No evidence of imminent risk to self or others. Client Response/Progress/Benefit: [] Pt responded well to session, open to processing with group and engaged. On symptom tracker pt reports a 1/5, with 5 being severe, for depression and a 2/5 for anxiety. Pt reported mental health positive as cleaning her bedding which is something she had been putting off for awhile. 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 Pt reported this is something she has been wanting for a long time and is excited. Pt identified current stressor as finding mites in her pet insect container. Pt stated she is now worried the mites got out of the container which makes her feel paranoid. She plans to do deep cleaning when she gets home to help manage her anxious thoughts. Pt appeared to benefit from supportive feedback of the group, as well as reflecting on mental health wins. Pt will continue IOP tx to help with transition back to work, continue use of healthy coping skills, and prevent decompensation.
--- NOTE | 2023-05-31 10:10 | BH.SGPN.GN ---
Behaviors/Verbalizations/Mental Status: [] Eye contact is good. Motor activity is appropriate. Appearance is casual. Speech is Appropriate. Mood is anxious. Affect is congruent. Thoughts are linear and logical. No evidence of psychosis. Client Response/Progress/Benefit: [] Pt was an active participant in group discussions. Attentive during psychoeducation AEB by note taking. Pt worked along with her peers in small groups and worked to define guilt, inappropriate guilt, and appropriate guilt. Interactive discussion on examples of both inappropriate and appropriate guilt. Pt identified a personal example of inappropriate guilt which was being too tired to walk my dog and beating myself up for itand how this impacted her mental health. Benefited from increased awareness of guilt and the differences between appropriate and inappropriate guilt. Will continue in IOP to prevent decompensation/re-admission to psych unit, maintain safety, and to improve functioning to transition back to work. Narrative Note: []
--- NOTE | 2023-05-31 11:15 | BH.SGPN.GN ---
Behaviors/Verbalizations/Mental Status: []Pt alert and oriented, neatly dressed and groomed. Eye contact good. Motor activity appropriate. Speech within normal limits. Affect congruent, mood anxious. Thoughts linear, logical, no signs of hallucinations or delusions. Client Response/Progress/Benefit: []Pt engaged participant AEB listening attentively to others and providing input throughout group. During challenge activity pt worked cooperatively with small group. Pt made connection that it takes patience, willingness to be uncomfortable, and problem solving to work through appropriate and inappropriate guilt. Pt worked with their small group to identify strategies to manage inappropriate guilt. Pt stated pt often feels inappropriate guilt when pt does not walk their dog or feels they are not doing enough. Pt wants to work on this by asking themselves questions about where the guilt is coming from and reminding self that it can be inappropriate. Pt seemed to benefit from learning about strategies to manage appropriate and inappropriate guilt. Pt to continue IOP to reduce unrealistic expectations for self, improve ability to communicate needs, and increase self-compassion. Narrative Note: []
--- NOTE | 2023-06-04 09:05 | BH.SGPN.GN ---
Behaviors/Verbalizations/Mental Status: [] Eye contact is poor. Motor activity is appropriate. Appearance is casual. Speech is Appropriate. Mood is anxious. Affect is congruent. Thoughts are linear and logical. No evidence of psychosis. Reviewed daily check in sheet and pt reports 1/5 for suicidal thoughts and 0/5 for intent. Client Response/Progress/Benefit: [] Pt participated at times in group discussion. Daily symptom tracker notes 3/5 for anxiety. Emotion for today is ?positive?. Shared with the group that she is set to return to work tomorrow which will be her first day back since her SA and hospitalization. She continues to practice skills such as behavioral activation and opposite action to maintain her mood. She did not elaborate on her anxiety or stress in regard to returning to work instead focusing on superficial stressors. Progress noted per pt report AEB continued use on skills. Benefited from group support, encouragement, and feedback. Will continue in IOP to maintain safety, increase healthy coping, and transition back to work. Narrative Note: []
--- NOTE | 2023-06-04 10:15 | BH.SGPN.GN ---
Behaviors/Verbalizations/Mental Status: []Pt alert and oriented, neatly dressed and groomed. Eye contact good. Motor activity appropriate. Speech within normal limits. Affect constricted, mood anxious. Thoughts linear, logical, no signs of hallucinations or delusions. Client Response/Progress/Benefit: []Pt engaged in session AEB listening attentively to others and providing insight to group discussion. Pt engaged in activity, able to connect how it can be uncomfortable and difficult to accept when things are out of one?s own control. Pt struggled in the activity with not having control and started drawing their own thing instead of following peers' ideas. Pt worked with group to identify what things in life can be hard to accept. Group identified things hard to accept as: of a loved one, body image, loss of relationship, mental health diagnosis, other?s behaviors, and past decisions. Pt worked on identifying what personal things are hard to accept such as not meeting their expectations or when things do not go as planned. Pt seemed to benefit from increased awareness of importance of acceptance. Pt to continue IOP tx to promote work-related functioning, reduce negative self-talk, and increase resilience. Narrative Note: []
--- NOTE | 2023-06-04 11:15 | BH.SGPN.GN ---
Behaviors/Verbalizations/Mental Status: []Pt alert and oriented, casually dressed and groomed. Eye contact fair to good. Motor activity appropriate. Speech within normal limits. Affect congruent, mood anxious and content. Thoughts linear, logical, no signs of hallucinations or delusions. Client Response/Progress/Benefit: []Pt responded well to session AEB taking notes and contributing to discussion throughout. Pt engaged as group continued discussion on acceptance and the mental health benefits of practicing acceptance. Pt and peers identified what makes acceptance challenging and pt completed a self-reflection exercise on what is hard to accept in pt's life. Pt identified struggling to accept that ?My job is not what I want to be doing/doesn't feel fulfilling? Group identified strategies to increase acceptance and pt shared wanting to focus on practicing starting with small acceptance goals. Pt appeared to benefit from gaining insight and learning strategies to increase acceptance. Pt will continue IOP tx to promote mood stability, continue to combat distortions, and prevent decompensation. Narrative Note: []
--- NOTE | 2023-06-04 13:45 | BH.MDN ---
Multi-Disciplinary Note Note 45-min Individual: Time Started:: 12:10 Date: 06/04/23 Purpose of session/treatment goals addressed:: To process current stressor and help pt identify coping skills to manage this stressor. Eye Contact:: Good Motor Activity:: Restless Appearance:: Casual Speech:: Soft Mood:: Depressed Affect:: Congruent (tearful) Thoughts:: Linear, Logical and No evidence of hallucinations/delusions noted Staff Interventions:: thought challenging, motivational interviewing, CBT techniques, strengths perspective and other (discussed boundary setting strategies and how to communicate needs) Client Response:: Pt responded well to session, open to meeting with therapist. Pt is going back to work this week for two days and pt thought they would be more anxious, but they feel like it will go okay. Pt's work is willing to make accommodations that pt asked for which will hopefully help pt transition back to their job successfully. Pt stated they want to talk about a recent situation that happened with their mother. Pt shared since pt's suicide attempt, pt's mother checks in with pt daily and recently pt did not respond due to not being around their phone. Pt shared their mother became anxious and angry with pt and their mother stated you don't get to do that. Pt was tearful and shared they understand where there mother is coming from, but pt feels like their mother does not trust them. Pt also feels frustrated that they have less freedom and pt feels like her mother only texts me now to check in, not to talk. Pt is close with their mother and feels that having a conversation with mom will be effective. Pt wants to be assertive and acknowledge mom's feelings, but still set boundaries. Discussed alternative ways pt's mother could check-in and provide support. Pt also encouraged to provide their mother and father with information on pt's triggers and warning signs so they can better help pt and be more aware. Pt receptive to this and plans to talk to mom tonight. Risks/Concerns:: Pt denies any active SI, plan, or intent as of 06/04/23. Pt has been reporting less fleeting SI over the past few weeks and has been more future oriented. Progress Toward Goals/Plan:: Pt continues to make progress towards tx goals AEB pt's report of reduced SI and improving mood stability. Pt is returning to work part-time and pt is less anxious about this than expected. Pt also has been utilizing healthy coping skills outside of IOP which has helped pt be more present and reduce isolation. Pt has a stressor with their mother and pt plans to address this directly which is progress. Pt is still feeling anxious, has some depression, and endorses ruminations consistently. Pt will continue IOP tx to promote use of healthy coping skills, improve work-related functioning, and reduce negative self-talk. Time Stopped:: 12:55
--- NOTE | 2023-06-07 09:28 | BH.MDN ---
Multi-Disciplinary Note Note 45-min Individual: Time Started:: 09:10 Date: 06/07/23 Purpose of session/treatment goals addressed:: To discuss return to work stressors and positives. Another goal was to work on goal #2 of pt's tx plan. Eye Contact:: Good Motor Activity:: Appropriate Appearance:: Neat Speech:: Appropriate Mood:: Euthymic Affect:: Congruent Thoughts:: Linear, Logical and No evidence of hallucinations/delusions noted Staff Interventions:: thought challenging, CBT techniques, mindfulness skills, discharge planning, strengths perspective and goal setting Client Response:: Pt responded well to session, open to meeting with therapist. Pt shared work went well and that there were some stressors, but overall pt coped well. Pt reflected that they used mindfulness, deep breathing, laughter, and socializing at work to help manage anxiety. Pt shared that a lot of their co-workers missed pt and were happy to see them. Pt did not have a lot of people ask why they were off, but pt has a plan if they do. Pt stated working 8 hours straight was a little exhausting and this will be an adjustment going back to. Pt asked about extending their plan for hour reduction and this therapist will follow up with IOP director and medical accounts receivable specialist. Pt stated they had a talk with their mom and this went well. Pt's mother apologized for being aggressive towards pt and they figured out a different way to check-in which pt feels will be beneficial. Pt encouraged to take advantage of their positive mood and balanced perspective and practice thought challenging, so pt has something to refer back to when they have a tough moment or trigger. Pt appeared receptive to this, but pt has yet to write in their journal. Risks/Concerns:: Pt denies any active SI, plan, or intent. Pt is more hopeful. Progress Toward Goals/Plan:: Pt continues to respond well to tx AEB pt's self-report of spending more time with supports, communicating directly, and increased ability to challenge negative thoughts. Pt wants to continue to be on a reduced schedule for work for the next two weeks and then wants to return full-time on 06/24/23. Pt stated work went well, but pt does not feel ready to return to full-time on 06/17/23. In many ways pt is doing better, but pt still struggles with difficulty accepting, rigid thought patterns, occasional crying spells, and negative thoughts of self. Pt can benefit from IOP tx to promote gains, increase mood stability, and combat distorted thought patterns. Time Stopped:: 09:50
--- NOTE | 2023-06-07 10:10 | BH.SGPN.GN ---
Behaviors/Verbalizations/Mental Status: []Eye contact is fair. Motor activity is appropriate. Appearance is casual. Speech is Appropriate. Mood is euthymic. Affect is constricted. Thoughts are linear and logical. No evidence of psychosis. Client Response/Progress/Benefit: []Pt participated during the group discussion. Attentive during psychoeducation and actively engaged during experiential activity. Participated during interactive discussion on aspects of fixed mindset. Group identified several aspects of fixed mindset which include: inflexible, belief that one cannot grow, absolute thinking, and all of one's skills, traits, and behaviors can't change. Group identified personal examples of fixed thinking. Benefited from increased understanding of personal fixed mindsets and how they can impact mental health. Pt to continue IOP to continue use of healthy coping skills, challenge distorted/perfectionistic thought patterns, and prevent decompensation.
--- NOTE | 2023-06-07 11:15 | BH.SGPN.GN ---
Behaviors/Verbalizations/Mental Status: []Pt alert and oriented, neatly dressed and groomed. Eye contact good. Motor activity appropriate. Speech within normal limits. Affect constricted, mood anxious. Thoughts linear, logical, no signs of hallucinations or delusions. Client Response/Progress/Benefit: []Pt was an active participant during activity and discussion AEB providing some input, connecting with peers, as well as taking notes throughout. Pt did well to engage as group worked on identifying characteristics and benefits of adopting a growth mindset. Worked with fellow participants in reframing the example fixed thoughts into growth mindset thoughts. Pt worked in small groups, but had to leave before challenging their own fixed mindset thought. Pt has been working individually to challenge fixed mindset thinking. Benefitted from discussing benefits of growth mindset and brainstorming strategies for prompting growth-mindset. Pt appeared to benefit from working in small groups to challenge own thoughts and help peers. Pt will continue IOP tx to promote work-related functioning, increase self-confidence, and combat distorted thinking patterns. Narrative Note: []
--- NOTE | 2023-06-11 10:08 | BH.SGPN.GN ---
Behaviors/Verbalizations/Mental Status: []Pt alert and oriented, neatly dressed and groomed. Eye contact good. Motor activity appropriate. Speech within normal limits. Affect congruent, mood euthymic and anxious. Thoughts linear, logical, no signs of hallucinations or delusions. Client Response/Progress/Benefit: [] Pt was an active participant in group discussions. Attentive during psychoeducation on 4 types of conflict styles (Competing, Collaborating, Avoiding, and Accommodating). Worked with group to define conflict and identify how conflict is helpful. With peers identified barriers to addressing or managing conflict which included: not wanting to hurt others, lack of communication skills, and cognitive distortions. Pt believes they use the accommodating and avoiding styles the most. Pt shared they are avoiding when it come to ?my problems? and accommodating with others. Pt wants to get better at asserting their needs. Benefited from group due to increase insight and awareness of benefits to conflict, conflict styles, and obstacles to managing conflict. Will continue in IOP to improve work-related functioning, increase self-confidence, and reduce negative thinking patterns. Narrative Note: []
--- NOTE | 2023-06-11 11:05 | BH.SGPN.GN ---
Behaviors/Verbalizations/Mental Status: []Pt alert and oriented, neatly dressed and groomed. Eye contact good. Motor activity appropriate. Speech within normal limits. Affect congruent, mood anxious. Thoughts linear, logical, no signs of hallucinations or delusions. Client Response/Progress/Benefit: [] Pt was an active participant in group discussions and activity. Attentive during psychoeducation. Along with peers was able to reflect on what conflict resolution skills can be useful outside of IOP. Pt chose to continue to work on the conflict resolution skill of using opposite action and being direct with their needs for the rest of the week. Benefited from practicing and learning conflict resolution skills. Will continue in IOP tx to promote work-related functioning, improve self-compassion, and increase dialectical thinking skills. ? Narrative Note: []
--- NOTE | 2023-06-11 14:15 | BH.MDN ---
Multi-Disciplinary Note Note 30-min Individual: Time Started:: 09:25 Date: 06/11/23 Purpose of session/treatment goals addressed:: To process current stressors, review progress with returning to work, and discuss aftercare. Eye Contact:: Good Motor Activity:: Restless Appearance:: Neat Speech:: Soft Mood:: Euthymic and Anxious Affect:: Congruent (tearful at times) Thoughts:: Linear, Logical and No evidence of hallucinations/delusions noted Staff Interventions:: thought challenging, CBT techniques, discharge planning, strengths perspective and other (discussed maintenance plan and gave pt this for homework. Will review on last day) Client Response:: Pt responded well to session, open to meeting with therapist. Pt reports they have been functioning better which looks like socializing with friends and engaging in self-care. Pt has been able to complete two full days of work so far and will go back tomorrow and this week. Pt feels the accommodations have helped pt feel less overwhelmed at work and pt wants to get clarification about if their role will change once they go back full-time. 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 Pt is also anxious about going back to 10 hour days. Pt reminded self that they are capable of managing symptoms and problem-solving stressors. Pt became tearful while talking about acceptance and understanding that if pt's anxiety does not decrease, pt may have to consider something different. Pt admits they struggle a lot with change and accepting that their life path is different than expected. Pt practiced self-compassion and positive affirmations. Pt also shared they have been finding evidence for their new, more balanced core belief. Risks/Concerns:: No SI reported and pt shared they have not had suicidal thoughts for several weeks. Progress Toward Goals/Plan:: Pt continues to respond well to tx AEB pt's self-report of I'm doing better than I was and pt's increased ability to manage stressors. Pt will continue to be on a reduced schedule for work for the next two weeks and then return full-time on 06/24/23. In many ways pt is doing better, but pt still struggles with difficulty accepting, rigid thought patterns, occasional crying spells, and negative thoughts of self. Pt can benefit from one more IOP session to increase self-confidence and promote gains. Time Stopped:: 09:45
--- NOTE | 2023-07-11 09:05 | BH.SGPN.GN ---
Behaviors/Verbalizations/Mental Status: [] Eye contact is good. Motor activity is appropriate. Appearance is casual. Speech is Appropriate. Mood is anxious. Affect is congruent. Thoughts are linear and logical. No evidence of psychosis. Reviewed daily check in sheet and pt reports 1/5 for suicidal thoughts and 0/5 for intent. This baseline. Client Response/Progress/Benefit: [] Pt participated at times during the group discussion. Attentive. Daily symptom tracker notes 3/5 for depression and 2/5 for anxiety. Emotion for today is neutral. Pt shared her mental health wins over the weekend which centered around social support and activities. Check-in was mostly superficial. When asked about how she is managing her return to work she states fine. Does not elaborate on this significant stressor in the past week. Progress noted per pt report. Benefited from group support, encouragement, and feedback. Will continue in IOP to maintain safety, prevent decompensation/re-admission to psych unit, and to transition back to FT work. Narrative Note: []
== END 2023-06-15 23:59 ==
LOC: BHIOP 08:31
PROVIDERS: Referring Provider Psychiatry & Neurology Psychiatry; Visit Provider Psychiatry & Neurology Psychiatry
DX: F33.2 Major depressive disorder, recurrent severe without psychotic features (principal); F41.1 Generalized anxiety disorder
CPT/HCPCS: S9480; 90832; 90834; 90853

== ENCOUNTER 2023-06-17 09:17 | Outpatient (RCR) | payer OTHER, SELFPAY ==
--- NOTE | 2023-06-18 08:32 | BH.AFTERPLAN ---
Aftercare Plan Demographics Treatment End Date:: 06/18/23 Psychiatrist:: Lisandra Bañuelos Psychiatrist Office #:: [phone] [facility]/IOP Therapist:: Irma Watkins Therapist Phone #:: [phone] Medications Home Medications bupropion HCl 300 mg 24 hr tablet, extended release (Wellbutrin XL) 300 mg PO DAILY 05/01/23 cetirizine 10 mg capsule (Zyrtec) 10 mg PO DAILY PRN allergy symptoms 05/01/23 diphenhydramine HCl 25 mg capsule (Benadryl) 25 mg PO QHS PRN sleep 05/01/23 duloxetine 30 mg capsule,delayed release (Cymbalta) 90 mg PO DAILY 05/01/23 trazodone 50 mg tablet 25 - 50 mg PO QHS PRN sleep 05/01/23 Plan Details Progress/Aftercare Plan Details:: Eva has responded well to treatment as evidenced by Eva consistently attending IOP sessions and their reduction of DSM-5 scores since admission. Eva was always attentive and receptive to learning during group and individual sessions. Eva actively applied coping skills outside of IOP, reports overall their mood is improved, and they are functioning better than they were several months ago. Rajnis overall symptom reduction is 48% since admission with anger decreasing by 100%, depression decreasing by 40%, unpleasant thoughts/images decreasing by 71%, suicidal thoughts decreasing by 100%, and anxiety decreasing by 38%. Eva has increased self-confidence in their ability to manage stressors, emotions, and negative thinking patterns. Most importantly, Eva has gained self-compassion and has been assertive of their needs. Strategies for Success:: 1. Opposite action! Continue to break that cycle of anxiety and depression by not letting emotions be the only drivers of your bus. 2. Remember that thoughts are thoughts NOT facts! You have power in if you give thoughts the time of day or not. 3. self-care! You deserve to take time for you and you also deserve to face the not so fun self-care like asserting your needs. 4. Self-compassion! You are human and you will make a mistake?BUT that doesn?t mean you are a failure or not good enough. Give yourself credit for all the wonderful things you do. 5. continue putting in effort to the people and coping skills that serve you 6. Practice positive self-talk and keep track of your wins. 7. Remember progress isn?t linear! You may have a setback or bump in the road, but that doesn?t mean you?ve lost all progress. 8. self-reflection and self-awareness. 9. Delay, Distract, Decide 10. Live in the ceja!! Appointments Appointments/Referrals to Other Services:: 1. Individual sessions with Deirdre Gonzales last appointment on 06/17/23. 2. Follow up with Dr. Mills for medication management last appointment was in May.
--- NOTE | 2023-06-18 10:15 | BH.SGPN.GN ---
Behaviors/Verbalizations/Mental Status: [] Eye contact is fair. Motor activity is appropriate. Appearance is casual. Speech is Appropriate. Mood is dysthymic. Affect is constricted. Thoughts are linear and logical. No evidence of psychosis or hallucinations. Client Response/Progress/Benefit: [] Pt was an active participant in group discussion and activity. Attentive during psychoeducation. Along with peers was able to identify barriers to taking action on her mental health which included: fear of failure, the unknown, change, one's environment, past negative experiences, being passive, and fear of vulnerability. Identified several symptoms and stressors that client feels are impacting progress. Client identified fear of failure as the vending route driver of my bus currently. Benefited from increased self-awareness of obstacles. Will continue in IOP to challenge perspective, increase healthy coping, and prevent decompensation.
--- NOTE | 2023-06-18 11:20 | BH.SGPN.GN ---
Behaviors/Verbalizations/Mental Status: []Pt alert and oriented, casually dressed and groomed. Eye contact good. Motor activity appropriate. Speech within normal limits. Affect congruent, mood anxious. Thoughts linear, logical, no signs of hallucinations or delusions. Client Response/Progress/Benefit: [] Pt responded well to session, taking notes and participating in worksheet discussion. Pt connected with the zones of action/change and that making sustainable change comes from stepping out of one?s comfort zone into the learning zone. Pt set a goal to gain control over their avoidance of applying for jobs they qualify for. Pt will do this by looking at positions this weekend, using positive self-talk, opposite action, and having their mom present for support. Appeared to benefit from identifying a small goal to benefit mental health. Will discharge from IOP tx as pt has accomplished their goals and no longer meets criteria for IOP level of care. Narrative Note: []
--- NOTE | 2023-06-18 14:42 | BH.DS ---
Discharge Summary Demographics Date of Admission:: 05/08/23 Discharge Date: 06/18/23 Presenting Problems at Admission:: Pt is a 22-year-old non-binary person with a history of depression and anxiety. Pt referred to [facility] tx following an psychiatric admission to [facility] due to a suicide attempt that was interrupted by excessive alcohol use. Pt presents with a depressed mood, passive SI, crying spells, hopelessness, negative thinking patterns, and guilt. Pt's symptoms are impacting their social, occupational, and daily functioning. Discharge Diagnoses:: Major depressive disorder, recurrent, severe without psychosis F 33.2; Generalized anxiety disorder Reason for Discharge:: Pt has accomplished his tx goals AEB their 48% symptom reduction and self-report of improved mood stability and functioning. Pt will continue with outpatient counseling and psychiatry. Treatment Progress During Treatment & Response: Pt has responded well to treatment as evidenced by Pt consistently attending IOP sessions and their reduction of DSM-5 scores since admission. Pt was always attentive and receptive to learning during group and individual sessions. Pt actively applied coping skills outside of IOP, reports overall their mood is improved, and they are functioning better than they were several months ago. Pt?s overall symptom reduction is 48% since admission with anger decreasing by 100%, depression decreasing by 40%, unpleasant thoughts/images decreasing by 71%, suicidal thoughts decreasing by 100%, and anxiety decreasing by 38%. Pt has increased self-confidence in their ability to manage stressors, emotions, and negative thinking patterns. Most importantly, Pt has gained self-compassion and has been assertive of their needs. Issues Still to be Addressed:: Pt can benefit from continuing to work on self-confidence, thought challenging, forming more balanced core beliefs, overcoming fear of failure, reducing avoidance, assertive communication, and boundary setting. Discharge Recommendations/Instructions:: Pt will continue with their outpatient providers for continuity of care. Pt sees Deirdre Gonzales at [facility] and pt adriano saw her on 06/17/23. Pt also sees Dr. Mills through [facility] for medication management and last saw her in May. Discharge Handout
== END 2023-06-18 14:37 | disposition home or self-care (01) ==
LOC: BHIOP 09:17
PROVIDERS: Referring Provider Psychiatry & Neurology Psychiatry; Visit Provider Psychiatry & Neurology Psychiatry
DX: F33.2 Major depressive disorder, recurrent severe without psychotic features (principal); F41.1 Generalized anxiety disorder
CPT/HCPCS: S9480; 90853